=== PATIENT | male | born 1975 | race Caucasian/White ===

== ENCOUNTER 2022-02-15 09:08 | Inpatient (IN) | payer BC ==
[~2022-02-15] VITALS: Ht 182.9 cm; Wt 89.9 kg
[2022-02-15] VITALS (24 sets, daily range): BP systolic 89–166; BP diastolic 57–96
[2022-02-15 09:45] LABS: BASOPHILS # (AUTO) 0.1 X10'3 (0-0.2); BASOPHILS % (AUTO) 0.4 % (0-1); EOSINOPHILS % (AUTO) 0.4 % (0-6); HEMATOCRIT 52.9 % (42.0-52.0); HEMOGLOBIN 17.9 g/dl (14.0-17.9); LYMPHOCYTES # (AUTO) 0.5 X10'3 (1.1-4.8); LYMPHOCYTES % (AUTO) 3.7 % (21-51); MEAN CORPUSCULAR HEMOGLOBIN 34.3 PG (27.0-31.0); MEAN CORPUSCULAR HGB CONC 33.9 g/dL (33.0-36.5); MEAN CORPUSCULAR VOLUME 101.3 FL (78-98); MEAN PLATELET VOLUME 9.4 FL (7.4-10.4); MONOCYTES # (AUTO) 1.2 X10'3 (0-0.9); MONOCYTES % (AUTO) 9.2 % (2-12); NEUTROPHILS # (AUTO) 10.9 X10'3 (1.8-7.7); NEUTROPHILS % (AUTO) 86.3 % (42-75); PLATELET COUNT 101 X10'3 (140-440); RED BLOOD COUNT 5.22 X10'6 (4.70-6.10); RED CELL DISTRIBUTION WIDTH 13.4 % (11.5-14.5); WHITE BLOOD COUNT 12.6 X10'3 (4.5-11.0)
[2022-02-15 10:03] LABS: ALANINE AMINOTRANSFERASE 41 U/L (12-78); ALBUMIN/GLOBULIN RATIO 0.6 (1.1-1.5); ALKALINE PHOSPHATASE 148 IU/L (46-116); ANION GAP 14 (8-16); ASPARTATE AMINO TRANSFERASE 28 U/L (10-37); BILIRUBIN,TOTAL 3.1 MG/DL (0.1-1.0); BLOOD UREA NITROGEN 20 MG/DL (7-18); BUN/CREATININE RATIO 11.6 (5.4-32.0); CALCIUM 10.4 MG/DL (8.5-10.1); CHLORIDE 90 MMOL/L (99-107); CREATININE 1.72 MG/DL (0.60-1.10); SODIUM 124 MMOL/L (135-145); TOTAL PROTEIN 8.4 G/DL (6.4-8.2); eGFR 43 ML/MIN
[2022-02-15 10:05] LABS: POTASSIUM 4.7 MMOL/L (3.5-5.1)
[2022-02-15] MEDS ORDERED: ampicillin/sulbac 3gm/NS 100ml 100 ML IV STA (10:06)
[2022-02-15] MEDS ORDERED: normal saline 1000ML IV soln IVB ONE ×3 (10:10→13:35)
[2022-02-15 10:12] LABS: GLUCOSE 462 MG/DL (70-104)
[2022-02-15] MEDS ORDERED: vancomycin inj 1,000 MG in normal saline 250ml IV soln 250 ML IV ONE (10:25)
[2022-02-15 10:45] LABS: PLATELET ESTIMATE DECREASED; TOTAL CELLS COUNTED 100
[2022-02-15 10:46] LABS: LARGE PLATELETS FEW
[2022-02-15] MEDS ORDERED: insulin regular, human 10 units/0.1 ml syringe SQ ONE (11:10)
[2022-02-15] MEDS ORDERED: insulin regular, human 10 units/0.1 ml syringe IV ONE (11:10)
[2022-02-15] MEDS ORDERED: vancomycin/NS 1 GM ADD-VANTAGE 250 ML IV ONE (11:19)
[2022-02-15 11:23] LABS: CLARITY,URINE CLEAR (Clear); COLOR,URINE YELLOW (Yellow); GLUCOSE, URINE >=1000 mg/dl (Neg); KETONES,URINE 15 mg/dl (Neg); LEUKOCYTE ESTERASE ,URINE NEGATIVE (Neg); NITRITES, URINE NEGATIVE (Neg); OCCULT BLOOD,URINE TRACE-INTACT (Neg); PH,URINE 5.5 (4.8-8.0); PROTEIN,URINE TRACE mg/dl (Neg); UROBILINOGEN,URINE 0.2 E.U/dL (0.2-1.0)
[2022-02-15 11:40] LABS: UA COLLECTION TYPE URINAL
[2022-02-15 11:48] LABS: BACTERIA,URINE NONE SEEN /HPF (Neg); MUCUS STRANDS NONE SEEN /LPF (Neg); RBC,URINE 0-2 /HPF (0-2); SQUAMOUS EPITHELIAL CELL,UR FEW /LPF (FEW); WBC,URINE NONE SEEN /HPF (0-4)
[2022-02-15] MEDS ORDERED: clindamycin-Cleocin 900mg/D5W 50 ML IV ONE (12:00)
[2022-02-15] MEDS ORDERED: ondansetron/PF 4mg/2ml inj IV ONE (12:05)
[2022-02-15] MEDS ORDERED: morphine 4 MG/ML inj SYRINge IV ONE (12:05)
[2022-02-15] MEDS ORDERED: LIDOcaine 2% 10ml TOPICAL JELLY (Urojet) MM ONE (12:25)
[2022-02-15] MEDS ORDERED: NO HOME MEDS (13:07)
[2022-02-15] MEDS ORDERED: LIDOcaine 1% (10mg/ml) 2ml vial ONE (14:19)
[2022-02-15] MEDS ORDERED: midazolam 1 mg/ML 2ml injection ONE (14:20)
[2022-02-15] MEDS ORDERED: sevoflurane 250ml liquid IH ONE (14:33)
[2022-02-15] MEDS ORDERED: NORepinephrine 8 MG in NS 250 ML BAG (32 mcg/ml) IV ONE (14:33)
[2022-02-15] MEDS ORDERED: LIDOcaine 2% (20mg/ml) 5ml vial ONE (15:35)
[2022-02-15] MEDS ORDERED: 0.9 % SODIUM CHLORIDE 10 ML VIAL ONE (15:35)
[2022-02-15] MEDS ORDERED: fentaNYL /PF 50mcg/ml 5ml ampule ONE (15:35)
[2022-02-15] MEDS ORDERED: ePHEDrine 50MG/ML INJ. ONE (15:35)
[2022-02-15] MEDS ORDERED: propofol inj 20 ML IV ONE (15:35)
[2022-02-15] MEDS ORDERED: rocuronium 10mg/ml inj IV ONE ×2 (15:35→15:46)
[2022-02-15] MEDS ORDERED: fentaNYL/PF 50MCG/1 ML 2ML syringe IV PRN (15:40)
[2022-02-15] MEDS ORDERED: insulin regular, human U-100 3ml vial - multi-dose ONE (15:41)
[2022-02-15] MEDS ORDERED: magnesium hydroxide 30ml (MOM) UD suspension PO PRN (16:10)
[2022-02-15] MEDS ORDERED: acetaminophen 325mg tablet PO PRN ×2 (16:10)
[2022-02-15] MEDS ORDERED: ondansetron/PF 4mg/2ml inj IV PRN (16:10)
[2022-02-15] MEDS ORDERED: POTASSIUM BICARB 20meq eff tab 20 MEQ TABLET.EFF PO PRN ×2 (16:10)
[2022-02-15] MEDS ORDERED: LIDOcaine 2% 10ml TOPICAL JELLY (Urojet) TP ONE (16:10)
[2022-02-15 16:15] LABS: ABG BASE EXCESS -9.2 mmol/L (-2.0-2.0); ABG HCO3 15.4 mmol/L (22.0-26.0); ABG OXYGEN SATURATION 97.3 % (94-97); FCOHb 2.4 % (0.0-3.9); FMetHb 0.3 % (0.0-1.5); FO2Hb 94.7 % (94-97); PATIENT TEMPERATURE 39.4; TOTAL HEMOGLOBIN 16.2 G/dl (14.0-17.9)
[2022-02-15] MEDS ORDERED: sodium bicarbonate (8.4%) inj. 1 MEQ/ML ML ONE (16:19)
--- NOTE | 2022-02-15 16:45 | NUR ---
Received from OR via [facility] , accompanied by Anesthesiologist JAS and report given by Anesthesiolgist. PATIENT WITH NGT TO LIS, BLOODY DRAINAGE PRESENT. TRIPLE LUMEN TO RIGHT NECK, 20G PIV IN RIGHT AC, ART LINE IN RIGHT UE. 18G PIV IN LEFT FA, GALVEZ CATHETERIN PLACE (CONCENTRATED URINE)IN UNDERS PACKED WITH SMALL AMOUNT OF DRAINAGE CONTAINED WITHIN DRESSINGS. INTUBATED FROM THE OR, RT APPLYING VENTILATOR. ORDERS RECIEVED AND ENTERED VIA MD ELIZALDE. Addendum: 02/15/22 at 1741 by Deon Tyler RN, RN Amended: Links added.
[2022-02-15] MEDS ORDERED: LORazepam 2 mg/ml vial ONE ×2 (16:46→16:48)
[2022-02-15] MEDS ORDERED: normal saline 1000ml 1,000 ML IV ONE (17:10)
[2022-02-15] MEDS ORDERED: normal saline 1000ml 1,000 ML IV SCH (17:10)
[2022-02-15] MEDS: propofol 1000mg/100ml bottle 100 ML IV SCH (17:26)
[2022-02-15] MEDS: FENTANYL-0.9 % NACL/PF 100 ML IV PRN (17:27)
[2022-02-15 17:29] LABS: ABG BASE EXCESS -8.3 mmol/L (-2.0-2.0); ABG HCO3 16.9 mmol/L (22.0-26.0); ABG OXYGEN SATURATION 99.2 % (94-97); ABG PCO2 (T) 34.2 mmHg (35.0-48.0); ABG PO2 (T) 167.8 mmHg (75.0-100.0); FCOHb 1.7 % (0.0-3.9); FMetHb 0.4 % (0.0-1.5); FO2Hb 97.1 % (94-97); PEEP 5 cm H2O; RESPIRATORY RATE 16 b/min; TIDAL VOLUME 650 mL; TOTAL HEMOGLOBIN 15.4 G/dl (14.0-17.9)
[2022-02-15] MEDS ORDERED: pantoprazole 40mg IV 80 MG in normal saline 100ml IV soln 100 ML IV ONE (17:45)
--- NOTE | 2022-02-15 17:55 | NUR ---
REPORT GIVEN AND ALL QUESTIONS ANSWERED. PATIENT TRANSFERRED TO MINGLE OPERATOR. NO BELONGINGS PRESENT IN ROOM. RN PRESENT ALL CRITERIA FOR TRANSFER CARE TO MINGLE OPERATOR HAS BEEN ACHIEVED. VSS. PAIN AT A TOLERABLE LEVEL. BED LOW, 4 RAILS UP PATIENT IS VENTILATED. RN HAS BEEN PRESENT TO ACCEPT CARE OF PATIENT AND PROVIDE CARE TO PATIENT. Addendum: 02/15/22 at 1800 by Deon Anderson - RANJAN RN Amended: Links added.
[2022-02-15] MEDS: NORepinephrine 8mg/ 250ml NS 250 ML IV SCH (18:30)
--- NOTE | 2022-02-15 18:30 | NUR ---
Patient in room CICU 2016. I have received report from day shift RN and had the opportunity to ask questions and assume patient care.
[2022-02-15 18:59] LABS: BASOPHILS % (AUTO) 0.3 % (0-1); EOSINOPHILS % (AUTO) 0 % (0-6); HEMATOCRIT 42.3 % (42.0-52.0); HEMOGLOBIN 14.3 g/dl (14.0-17.9); LYMPHOCYTES # (AUTO) 0.7 X10'3 (1.1-4.8); LYMPHOCYTES % (AUTO) 4.9 % (21-51); MEAN CORPUSCULAR HEMOGLOBIN 34.3 PG (27.0-31.0); MEAN CORPUSCULAR HGB CONC 33.7 g/dL (33.0-36.5); MEAN CORPUSCULAR VOLUME 101.7 FL (78-98); MEAN PLATELET VOLUME 9.4 FL (7.4-10.4); MONOCYTES # (AUTO) 2.1 X10'3 (0-0.9); NEUTROPHILS # (AUTO) 10.9 X10'3 (1.8-7.7); NEUTROPHILS % (AUTO) 79.8 % (42-75); PLATELET COUNT 98 X10'3 (140-440); RED BLOOD COUNT 4.16 X10'6 (4.70-6.10); RED CELL DISTRIBUTION WIDTH 13.7 % (11.5-14.5); WHITE BLOOD COUNT 13.7 X10'3 (4.5-11.0)
[2022-02-15] MEDS: normal saline 1000ml 1,000 ML IV SCH ×2 (19:00→19:29)
[2022-02-15 19:11] LABS: ALANINE AMINOTRANSFERASE 24 U/L (12-78); ALBUMIN 1.8 G/DL (3.4-5.0); ALBUMIN/GLOBULIN RATIO 0.5 (1.1-1.5); ALKALINE PHOSPHATASE 83 IU/L (46-116); ANION GAP 10 (8-16); ASPARTATE AMINO TRANSFERASE 18 U/L (10-37); BILIRUBIN,TOTAL 2.1 MG/DL (0.1-1.0); BLOOD UREA NITROGEN 18 MG/DL (7-18); BUN/CREATININE RATIO 14.1 (5.4-32.0); CALCIUM 7.4 MG/DL (8.5-10.1); CHLORIDE 105 MMOL/L (99-107); CREATININE 1.28 MG/DL (0.60-1.10); GLUCOSE 271 MG/DL (70-104); POTASSIUM 4.1 MMOL/L (3.5-5.1); SODIUM 135 MMOL/L (135-145); TOTAL CARBON DIOXIDE 20.5 MMOL/L (24-32); TOTAL PROTEIN 5.6 G/DL (6.4-8.2); eGFR 60 ML/MIN
--- NOTE | 2022-02-15 19:30 | NUR ---
Patient's at bedside. Questions answered, update given. All patient belongings including white metal colored ring sent home with patient's .
[2022-02-15 19:42] LABS: TOTAL CELLS COUNTED 100
[2022-02-15 19:47] LABS: PLATELET ESTIMATE DECREASED
[2022-02-15 19:48] LABS: BURR CELLS FEW; TEAR DROP CELLS FEW
[2022-02-15 20:15] LABS: D-DIMER 1.49 MG/L FEU (0-0.50)
[2022-02-15] MEDS ORDERED: glucagon, human recombinant 1mg kit SUBCUT PRN (20:15)
[2022-02-15] MEDS ORDERED: MESSAGE TO PHARMACY PO ONE (20:15)
[2022-02-15] MEDS ORDERED: DEXTROSE 15 GM of carb/4 tabs (each vial/BOTTLE has 4 tablets) PO PRN ×2 (20:15)
[2022-02-15] MEDS ORDERED: dextrose 50%-water 50ml dispensing syringe IV PRN ×2 (20:15)
[2022-02-15 20:30] LABS: APTT 29 SECONDS (22-32)
[2022-02-15 20:52] LABS: PLATELET COUNT 98 X10'3 (140-440)
[2022-02-15 20:54] LABS: MAGNESIUM 1.8 MG/DL (1.5-2.4); PHOSPHORUS 2.9 MG/DL (2.3-4.5)
[2022-02-15] MEDS: insulin glargine (Lantus) pen - multi-dose SQ SCH (21:00)
[2022-02-15 21:05] LABS: HEMOGLOBIN A1C 10.1 % (4.5-6.2)
[2022-02-15] MEDS: ringers solution, lacted 1,000 ML IV SCH (21:46)
[2022-02-15] MEDS: vasopressin inj. 40 UNIT in normal saline 50ml IV soln 38 ML IV SCH (21:47)
[2022-02-15] MEDS: insulin Lispro (HumaLOG) vial - multi-dose SQ SCH (22:42)
[2022-02-15 23:21] LABS: ALANINE AMINOTRANSFERASE 27 U/L (12-78); ALBUMIN 2.1 G/DL (3.4-5.0); ALBUMIN/GLOBULIN RATIO 0.5 (1.1-1.5); ALKALINE PHOSPHATASE 96 IU/L (46-116); ANION GAP 9 (8-16); ASPARTATE AMINO TRANSFERASE 21 U/L (10-37); BILIRUBIN,TOTAL 1.7 MG/DL (0.1-1.0); BLOOD UREA NITROGEN 18 MG/DL (7-18); CHLORIDE 104 MMOL/L (99-107); GLUCOSE 312 MG/DL (70-104); POTASSIUM 5.4 MMOL/L (3.5-5.1); SODIUM 134 MMOL/L (135-145); TOTAL CARBON DIOXIDE 20.7 MMOL/L (24-32); TOTAL PROTEIN 6.3 G/DL (6.4-8.2); eGFR 65 ML/MIN
[2022-02-16] VITALS (34 sets, daily range): BP systolic 94–128; BP diastolic 59–82
[2022-02-16] MEDS: VANCOmycin 1250MG/NS 250ml Bag 250 ML IV SCH ×2 (00:34→12:00)
[2022-02-16] MEDS: FENTANYL-0.9 % NACL/PF 100 ML IV PRN ×3 (00:36→13:07)
[2022-02-16] MEDS: clindamycin-Cleocin 900mg/D5W 50 ML IV SCH ×3 (00:47→16:52)
[2022-02-16] MEDS: ringers solution, lacted 1,000 ML IV SCH ×3 (01:20→13:07)
[2022-02-16] MEDS: piperacillin/tazo 4.5gm/100ml 100 ML IV SCH ×3 (02:19→16:52)
[2022-02-16 02:27] LABS: BASOPHILS % (AUTO) 0.1 % (0-1); EOSINOPHILS % (AUTO) 0 % (0-6); HEMATOCRIT 46.3 % (42.0-52.0); HEMOGLOBIN 15.1 g/dl (14.0-17.9); LYMPHOCYTES % (AUTO) 6.1 % (21-51); MEAN CORPUSCULAR HEMOGLOBIN 33.5 PG (27.0-31.0); MEAN CORPUSCULAR HGB CONC 32.6 g/dL (33.0-36.5); MEAN CORPUSCULAR VOLUME 102.8 FL (78-98); MEAN PLATELET VOLUME 9.4 FL (7.4-10.4); MONOCYTES # (AUTO) 2.1 X10'3 (0-0.9); MONOCYTES % (AUTO) 12.5 % (2-12); NEUTROPHILS # (AUTO) 13.7 X10'3 (1.8-7.7); NEUTROPHILS % (AUTO) 81.3 % (42-75); PLATELET COUNT 133 X10'3 (140-440); RED CELL DISTRIBUTION WIDTH 13.9 % (11.5-14.5); WHITE BLOOD COUNT 16.9 X10'3 (4.5-11.0)
[2022-02-16] MEDS: insulin Lispro (HumaLOG) vial - multi-dose SQ SCH ×2 (02:28→08:36)
[2022-02-16 02:56] LABS: ALANINE AMINOTRANSFERASE 27 U/L (12-78); ALBUMIN/GLOBULIN RATIO 0.5 (1.1-1.5); ALKALINE PHOSPHATASE 98 IU/L (46-116); ANION GAP 9 (8-16); ASPARTATE AMINO TRANSFERASE 21 U/L (10-37); BILIRUBIN,TOTAL 1.6 MG/DL (0.1-1.0); BLOOD UREA NITROGEN 18 MG/DL (7-18); BUN/CREATININE RATIO 15.9 (5.4-32.0); CHLORIDE 104 MMOL/L (99-107); CREATININE 1.13 MG/DL (0.60-1.10); GLUCOSE 307 MG/DL (70-104); MAGNESIUM 2.3 MG/DL (1.5-2.4); PHOSPHORUS 2.7 MG/DL (2.3-4.5); SODIUM 135 MMOL/L (135-145); TOTAL CARBON DIOXIDE 22.1 MMOL/L (24-32); TOTAL PROTEIN 6.3 G/DL (6.4-8.2); TRIGLYCERIDES 334 MG/DL (20-135); eGFR 70 ML/MIN
[2022-02-16 03:39] LABS: ABG BASE EXCESS -5.8 mmol/L (-2.0-2.0); ABG HCO3 19.9 mmol/L (22.0-26.0); ABG OXYGEN SATURATION 99.2 % (94-97); ABG PCO2 (T) 39.1 mmHg (35.0-48.0); ABG PO2 (T) 161.6 mmHg (75.0-100.0); ALLEN'S TEST POSITIVE; FCOHb 0.6 % (0.0-3.9); FMetHb 0.3 % (0.0-1.5); FO2Hb 98.3 % (94-97); PATIENT TEMPERATURE 36.7; PEEP 5 cm H2O; RESPIRATORY RATE 16 b/min; TIDAL VOLUME 600 mL
[2022-02-16] MEDS: NORepinephrine 8mg/ 250ml NS 250 ML IV SCH ×2 (03:41→13:20)
[2022-02-16] MEDS: propofol 1000mg/100ml bottle 100 ML IV SCH ×5 (03:41→22:38)
[2022-02-16 04:43] LABS: OXYGEN SATURATION (MIXED VEN) 85.7 % (60-80)
[2022-02-16] MEDS ORDERED: PHENYLephrine 10mg/ml inj. 50 MG in normal saline 250ml IV soln 245 ML IV PRN (05:05)
[2022-02-16] MEDS: normal saline 1000ml 1,000 ML IV SCH ×3 (05:30→18:50)
--- NOTE | 2022-02-16 06:30 | NUR ---
Problems reprioritized. Patient report given, questions answered & plan of care reviewed with Tierney WOODRUFF.
[2022-02-16] MEDS: K and/or MAG REPLACEMENT MC SCH (08:00)
[2022-02-16] MEDS ORDERED: albumin (human) 25% 100ml IV 400 ML IV ONE (10:25)
[2022-02-16] MEDS: thiamine 100mg/ml 2ml inj. IV SCH ×2 (10:26→19:36)
[2022-02-16] MEDS: MULTIVIT-MIN/FERROUS GLUCONATE 9 MG/15 ML LIQUID NG SCH (10:27)
[2022-02-16] MEDS: folic acid 1mg/0.2ml inj IV SCH (10:27)
[2022-02-16] MEDS: Insulin Reg/NS 100units/100mL 100 ML IV SCH (10:40)
[2022-02-16] MEDS: albumin (Human) 5% 250ml 250 ML IV SCH ×6 (11:30→23:57)
--- NOTE | 2022-02-16 12:05 | NUR ---
Cardiac consult: Likely intended to be a carb consult given no known cardiac PMH and pt found to have A1c 10.1%, undiagnosed DM (MD aware). Pt intubated at this time though would benefit from DM education once stable following extubation and official DM dx by physician. Pt with EtOH hx, currently receiving routine Thiamine, Folic acid, and MVM with iron. Pt admit for Tone's gangrene and sepsis, currently POD #1 s/p debridement of perineum and scrotum. Per MD pt to return to OR today for further debridement and possibly again either 02/17 or 02/18. Propofol visualized at bedside to be running at 20.52 mL/hr providing 572 kcal/day. Pt with an NGT in place, see TF recs below for if expected prolonged intubation and to receive nutrition support. Per RN pt currently with no bowel sounds. Pt possibly to get a colostomy placed on 02/20 to assist with wound healing per MD. Will continue to follow closely. Recommendations: 1) IF TF and Propofol at 20.52 mL/hr (572 kcal/day), continuous Vital HP via NGT with 65 mL/hr goal rate; Vital HP with 90 mL/hr goal if Propofol discontinued 2) Monitor serum Na and appropriateness for water flushes; pt would benefit from Norman BID to assist with wound healing 3) IF TF, prealbumin q Saturday/; daily scaled weights 4) Continue routine Thiamine, Folic acid, and MVM with iron d/t EtOH hx 5) Advance to low fiber CHO controlled diet as medically indicated following extubation 6) DM education once appropriate following extubation and official DM dx by physician; A1c 10.1% with no PMH DM (MD aware) 7) Bowel care per physician Addendum: 02/16/22 at [address] Amended: Links added.
[2022-02-16] MEDS ORDERED: sevoflurane 250ml liquid IH ONE (13:12)
[2022-02-16] MEDS ORDERED: NORepinephrine 8 MG in NS 250 ML BAG (32 mcg/ml) IV ONE (13:12)
[2022-02-16] MEDS ORDERED: vasoPRESSIN 20 units/ml inj. ONE (13:12)
[2022-02-16] MEDS ORDERED: propofol 10mg/ml 20ml vial IV ONE (13:12)
[2022-02-16] MEDS ORDERED: albumin (Human) 5% 250ml BOTTLE IV ONE (13:12)
[2022-02-16] MEDS ORDERED: rocuronium 10mg/ml inj IV ONE (13:12)
[2022-02-16] MEDS ORDERED: naloxone 0.4 mg/ml inj IV PRN (15:25)
--- NOTE | 2022-02-16 15:36 | NUR ---
WOC note: Wound care consult received for this patient with orders to contact Dr. Barron for wound orders. Phoned Dr. Barron who reports the patient does not need WOC consult at this time. The dressing should be fine to stay in place over the weekend and primary nursing can address the wound care Saturday and he will write the order for wet to moist dressing changes. I reported this off CICU primary RN. WOC will not follow the patient at this time.
[2022-02-16] MEDS: hydrocortisone sod succ/PF 100mg/2ml inj. IV SCH (16:52)
[2022-02-16] MEDS: fentaNYL/NS/PF 2,500 mcg/250mL 250 ML IV PRN (18:39)
[2022-02-16] MEDS: mineral oil/petrolatum ophthal oint EACHEYE SCH (19:36)
[2022-02-16] MEDS: insulin glargine (Lantus) pen - multi-dose SQ SCH (21:00)
[2022-02-17] VITALS (36 sets, daily range): BP systolic 101–124; BP diastolic 58–75
[2022-02-17] MEDS: hydrocortisone sod succ/PF 100mg/2ml inj. IV SCH ×4 (00:44→23:45)
[2022-02-17] MEDS: clindamycin-Cleocin 900mg/D5W 50 ML IV SCH ×4 (00:44→23:46)
[2022-02-17] MEDS: VANCOmycin 1250MG/NS 250ml Bag 250 ML IV SCH (00:48)
[2022-02-17] MEDS: piperacillin/tazo 4.5gm/100ml 100 ML IV SCH ×4 (00:48→23:46)
[2022-02-17] MEDS: ringers solution, lacted 1,000 ML IV SCH ×2 (01:23→08:41)
[2022-02-17] MEDS: normal saline 1000ml 1,000 ML IV SCH ×4 (01:30→21:30)
[2022-02-17] MEDS: NORepinephrine 8mg/ 250ml NS 250 ML IV SCH ×3 (02:06→19:13)
[2022-02-17 02:20] LABS: BASOPHILS % (AUTO) 0.3 % (0-1); EOSINOPHILS % (AUTO) 0 % (0-6); HEMATOCRIT 38.4 % (42.0-52.0); HEMOGLOBIN 12.5 g/dl (14.0-17.9); LYMPHOCYTES # (AUTO) 0.5 X10'3 (1.1-4.8); LYMPHOCYTES % (AUTO) 7.8 % (21-51); MEAN CORPUSCULAR HEMOGLOBIN 33.5 PG (27.0-31.0); MEAN CORPUSCULAR HGB CONC 32.5 g/dL (33.0-36.5); MEAN CORPUSCULAR VOLUME 103.2 FL (78-98); MONOCYTES # (AUTO) 0.8 X10'3 (0-0.9); MONOCYTES % (AUTO) 11.6 % (2-12); NEUTROPHILS # (AUTO) 5.5 X10'3 (1.8-7.7); NEUTROPHILS % (AUTO) 80.3 % (42-75); PLATELET COUNT 78 X10'3 (140-440); RED BLOOD COUNT 3.72 X10'6 (4.70-6.10); RED CELL DISTRIBUTION WIDTH 14.2 % (11.5-14.5); WHITE BLOOD COUNT 6.9 X10'3 (4.5-11.0)
[2022-02-17] MEDS: Insulin Reg/NS 100units/100mL 100 ML IV SCH ×4 (02:23→17:35)
[2022-02-17] MEDS: mineral oil/petrolatum ophthal oint EACHEYE SCH ×4 (02:23→19:14)
[2022-02-17] MEDS: albumin (Human) 5% 250ml 250 ML IV SCH ×8 (02:27→22:37)
[2022-02-17 02:38] LABS: MAGNESIUM 2.6 MG/DL (1.5-2.4)
[2022-02-17] MEDS: propofol 1000mg/100ml bottle 100 ML IV SCH ×9 (02:48→23:46)
[2022-02-17] MEDS: vasopressin inj. 40 UNIT in normal saline 50ml IV soln 38 ML IV SCH (02:48)
[2022-02-17 03:01] LABS: ABG BASE EXCESS -1.6 mmol/L (-2.0-2.0); ABG HCO3 23.5 mmol/L (22.0-26.0); ABG OXYGEN SATURATION 97.5 % (94-97); ABG PCO2 (T) 41.7 mmHg (35.0-48.0); FCOHb 0.6 % (0.0-3.9); FMetHb 0.2 % (0.0-1.5); FO2Hb 96.7 % (94-97); PATIENT TEMPERATURE 37.2; PEEP 8 cm H2O; RESPIRATORY RATE 16 b/min; TIDAL VOLUME 550 mL; TOTAL HEMOGLOBIN 13.5 G/dl (14.0-17.9)
[2022-02-17 03:10] LABS: LARGE PLATELETS FEW; PLATELET ESTIMATE DECREASED
[2022-02-17] MEDS: fentaNYL/NS/PF 2,500 mcg/250mL 250 ML IV PRN ×3 (05:35→20:58)
--- NOTE | 2022-02-17 06:25 | NUR ---
Problems reprioritized. Patient report given, questions answered & plan of care reviewed with Tra RN.
[2022-02-17] MEDS: thiamine 100mg/ml 2ml inj. IV SCH ×2 (07:19→19:13)
[2022-02-17] MEDS: folic acid 1mg/0.2ml inj IV SCH (07:22)
[2022-02-17] MEDS: MULTIVIT-MIN/FERROUS GLUCONATE 9 MG/15 ML LIQUID NG SCH (07:22)
[2022-02-17] MEDS: K and/or MAG REPLACEMENT MC SCH (07:22)
[2022-02-17 09:57] LABS: ALANINE AMINOTRANSFERASE 20 U/L (12-78); ALBUMIN 3.3 G/DL (3.4-5.0); ALBUMIN/GLOBULIN RATIO 1.1 (1.1-1.5); ALKALINE PHOSPHATASE 61 IU/L (46-116); ANION GAP 10 (8-16); ASPARTATE AMINO TRANSFERASE 18 U/L (10-37); BLOOD UREA NITROGEN 27 MG/DL (7-18); CALCIUM 8.6 MG/DL (8.5-10.1); CHLORIDE 109 MMOL/L (99-107); GLUCOSE 187 MG/DL (70-104); PHOSPHORUS 2.3 MG/DL (2.3-4.5); SODIUM 142 MMOL/L (135-145); TOTAL CARBON DIOXIDE 23.5 MMOL/L (24-32); TOTAL PROTEIN 6.4 G/DL (6.4-8.2); eGFR 90 ML/MIN
[2022-02-17 10:06] LABS: TOTAL CELLS COUNTED 100
[2022-02-17] MEDS ORDERED: furosemide 40mg/4ml inj IV ONE (10:45)
[2022-02-17] MEDS ORDERED: VANCOMYCIN LEVEL IV ONE (11:30)
--- NOTE | 2022-02-17 12:01 | NUR ---
TF consult: Pt remains intubated, not to go back to OR until Saturday per RN. MD agrees to start TF since no plans for pt to go back to OR today. Propofol visualized at bedside to be running at 50 mcg/kg/min (34.23 mL/hr) providing 904 kcal/day, TF recs have been adjusted accordingly. Patient's estimated energy needs will be 100% met with combined kcal from TF and Propofol and 98% estimated protein needs. Will continue to follow closely. Recommendations: 1) Given Propofol at 34.23 mL/hr (904 kcal/day), continuous Vital HP via NGT with 65 mL/hr goal rate to prove 1560 mL total volume/day, 1560 kcal, 126 g protein, and 1204 mL water 2) IF Propofol discontinued, continuous Vital AF with 85 mL/hr goal 3) Monitor Propofol rate and need to adjust TF recs 4) Monitor serum Na and appropriateness for water flushes; pt would benefit from Norman BID to assist with wound healing 5) Prealbumin q Saturday/ 6) Daily scaled weights 7) Continue routine Thiamine, Folic acid, and MVM with iron d/t EtOH hx 8) Advance to low fiber CHO controlled diet as medically indicated following extubation 9) DM education once appropriate following extubation and official DM dx by physician; A1c 10.1% with no PMH DM (MD aware) 10) Bowel care per physician Addendum: 02/17/22 at [address] Amended: Links added.
[2022-02-17] MEDS ORDERED: VANCOMYCIN 1,500MG in normal saline IV soln 300 ML IV SCH (14:00)
[2022-02-17] MEDS ORDERED: magnesium 4gm in 100ml NS 100 ML IV PRN (15:00)
[2022-02-17] MEDS ORDERED: sodium phosphate inj. 15 MMOL in dextrose 5%-water 250 ML IV PRN (15:00)
[2022-02-17] MEDS ORDERED: magnesium 2GM in 50ml NS 50 ML IV PRN (15:00)
[2022-02-17] MEDS ORDERED: sodium phosphate inj. 30 MMOL in dextrose 5%-water 250 ML IV PRN (15:00)
[2022-02-17] MEDS ORDERED: Neutra Phos packet PO PRN (15:00)
[2022-02-17] MEDS ORDERED: sodium phosphate inj. 15 MMOL in dextrose 5%-water 250 ML IV ONE (15:30)
[2022-02-17] MEDS ORDERED: DEXTROSE 15 GM of carb/4 tabs (each vial/BOTTLE has 4 tablets) NG PRN ×2 (16:26)
[2022-02-17] MEDS ORDERED: magnesium hydroxide 30ml (MOM) UD suspension NG PRN (16:27)
[2022-02-17] MEDS ORDERED: POTASSIUM BICARB 20meq eff tab 20 MEQ TABLET.EFF NG PRN ×2 (16:27→16:33)
[2022-02-17] MEDS ORDERED: Neutra Phos packet NG PRN (16:27)
[2022-02-17] MEDS: furosemide 20 MG/2 ML vial IV SCH ×2 (17:24→19:13)
--- NOTE | 2022-02-17 18:15 | NUR ---
Problems reprioritized. Patient report given, questions answered & plan of care reviewed with Makenzie.
--- NOTE | 2022-02-17 18:30 | NUR ---
Patient in room CICU 2016. I have received report from Reg RN and had the opportunity to ask questions and assume patient care.
[2022-02-17] MEDS: insulin glargine (Lantus) pen - multi-dose SQ SCH (21:00)
[2022-02-18] VITALS (33 sets, daily range): BP systolic 102–161; BP diastolic 55–72
[2022-02-18] MEDS: vasopressin inj. 40 UNIT in normal saline 50ml IV soln 38 ML IV SCH (01:06)
[2022-02-18] MEDS: mineral oil/petrolatum ophthal oint EACHEYE SCH ×4 (01:43→20:00)
[2022-02-18] MEDS: furosemide 20 MG/2 ML vial IV SCH ×4 (01:43→19:55)
[2022-02-18] MEDS: albumin (Human) 5% 250ml 250 ML IV SCH ×7 (01:43→22:11)
[2022-02-18] MEDS: propofol 1000mg/100ml bottle 100 ML IV SCH ×8 (02:33→23:02)
[2022-02-18 02:46] LABS: BASOPHILS % (AUTO) 0.1 % (0-1); EOSINOPHILS % (AUTO) 0 % (0-6); HEMATOCRIT 37.5 % (42.0-52.0); HEMOGLOBIN 12.4 g/dl (14.0-17.9); LYMPHOCYTES # (AUTO) 0.8 X10'3 (1.1-4.8); LYMPHOCYTES % (AUTO) 7.9 % (21-51); MEAN CORPUSCULAR HEMOGLOBIN 33.8 PG (27.0-31.0); MEAN CORPUSCULAR HGB CONC 33.2 g/dL (33.0-36.5); MEAN CORPUSCULAR VOLUME 101.9 FL (78-98); MEAN PLATELET VOLUME 9.3 FL (7.4-10.4); MONOCYTES % (AUTO) 10.4 % (2-12); NEUTROPHILS # (AUTO) 7.9 X10'3 (1.8-7.7); NEUTROPHILS % (AUTO) 81.6 % (42-75); PLATELET COUNT 104 X10'3 (140-440); RED BLOOD COUNT 3.67 X10'6 (4.70-6.10); RED CELL DISTRIBUTION WIDTH 14.7 % (11.5-14.5); WHITE BLOOD COUNT 9.7 X10'3 (4.5-11.0)
[2022-02-18 03:13] LABS: ALANINE AMINOTRANSFERASE 17 U/L (12-78); ALBUMIN 3.5 G/DL (3.4-5.0); ALBUMIN/GLOBULIN RATIO 1.3 (1.1-1.5); ALKALINE PHOSPHATASE 53 IU/L (46-116); ANION GAP 9 (8-16); ASPARTATE AMINO TRANSFERASE 21 U/L (10-37); BILIRUBIN,TOTAL 0.9 MG/DL (0.1-1.0); BLOOD UREA NITROGEN 37 MG/DL (7-18); BUN/CREATININE RATIO 35.6 (5.4-32.0); CALCIUM 8.4 MG/DL (8.5-10.1); CHLORIDE 109 MMOL/L (99-107); CREATININE 1.04 MG/DL (0.60-1.10); GLUCOSE 118 MG/DL (70-104); MAGNESIUM 2.4 MG/DL (1.5-2.4); PHOSPHORUS 3.3 MG/DL (2.3-4.5); POTASSIUM 3.2 MMOL/L (3.5-5.1); SODIUM 144 MMOL/L (135-145); TOTAL CARBON DIOXIDE 25.6 MMOL/L (24-32); TOTAL PROTEIN 6.3 G/DL (6.4-8.2); eGFR 77 ML/MIN
[2022-02-18] MEDS: VANCOMYCIN 1,500MG in normal saline IV soln 300 ML IV SCH ×2 (03:54→15:02)
[2022-02-18] MEDS: fentaNYL/NS/PF 2,500 mcg/250mL 250 ML IV PRN ×3 (03:54→19:01)
[2022-02-18] MEDS: normal saline 1000ml 1,000 ML IV SCH (04:10)
[2022-02-18 04:34] LABS: ABG BASE EXCESS -3.2 mmol/L (-2.0-2.0); ABG HCO3 21.1 mmol/L (22.0-26.0); ABG OXYGEN SATURATION 95.5 % (94-97); ABG PCO2 (T) 36.1 mmHg (35.0-48.0); ABG PO2 (T) 79.4 mmHg (75.0-100.0); FCOHb 0.3 % (0.0-3.9); FMetHb 0.3 % (0.0-1.5); FO2Hb 94.9 % (94-97); PATIENT TEMPERATURE 37.1; PEEP 8 cm H2O; RESPIRATORY RATE 16 b/min; TIDAL VOLUME 16 mL; TOTAL HEMOGLOBIN 13.2 G/dl (14.0-17.9)
[2022-02-18] MEDS: ringers solution, lacted 1,000 ML IV SCH (04:51)
[2022-02-18] MEDS: Insulin Reg/NS 100units/100mL 100 ML IV SCH (05:06)
--- NOTE | 2022-02-18 06:21 | NUR ---
Problems reprioritized. Patient report given, questions answered & plan of care reviewed with Piero WOODRUFF.
[2022-02-18] MEDS: MULTIVIT-MIN/FERROUS GLUCONATE 9 MG/15 ML LIQUID NG SCH (07:59)
[2022-02-18] MEDS: clindamycin-Cleocin 900mg/D5W 50 ML IV SCH ×3 (07:59→23:41)
[2022-02-18] MEDS: hydrocortisone sod succ/PF 100mg/2ml inj. IV SCH ×3 (08:00→23:41)
[2022-02-18] MEDS: piperacillin/tazo 4.5gm/100ml 100 ML IV SCH ×3 (08:05→23:40)
[2022-02-18] MEDS: thiamine 100mg/ml 2ml inj. IV SCH ×2 (08:05→19:55)
[2022-02-18] MEDS: folic acid 1mg/0.2ml inj IV SCH (08:08)
[2022-02-18] MEDS: K and/or MAG REPLACEMENT MC SCH (08:38)
[2022-02-18] MEDS: potassium Cl 20mEq/100mL bag 100 ML IV PRN ×2 (08:43→09:44)
[2022-02-18] MEDS: DOBUTamine-DoBUTrex 500mg/D5W 250 ML IV SCH (10:34)
[2022-02-18] MEDS: insulin glargine (Lantus) pen - multi-dose SQ SCH ×2 (10:40→20:33)
[2022-02-18] MEDS: pantoprazole 40MG/NS 100ML BAG 100 ML IV SCH ×2 (11:12→19:55)
[2022-02-18] MEDS: NORepinephrine 8mg/ 250ml NS 250 ML IV SCH (13:12)
[2022-02-18] MEDS ORDERED: glucagon, human recombinant 1mg kit SUBCUT PRN (14:10)
[2022-02-18] MEDS ORDERED: dextrose 50%-water 50ml dispensing syringe IV PRN ×2 (14:10)
[2022-02-18] MEDS ORDERED: DEXTROSE 15 GM of carb/4 tabs (each vial/BOTTLE has 4 tablets) PO PRN ×2 (14:10)
[2022-02-18] MEDS ORDERED: MESSAGE TO PHARMACY PO ONE (14:10)
[2022-02-18] MEDS: insulin regular, human U-100 3ml vial - multi-dose SQ SCH ×2 (14:12→20:32)
--- NOTE | 2022-02-18 21:00 | NUR ---
incontinent of mod liquid, brown stool, collecting in open scrotal wound. Packing removed. wound irrigated aggressively with NS. Wet-to-dry dressing with kurlex, 4x4 and abd placed in open wound. linen change completed. abdiel procedure well.
[2022-02-19] VITALS (31 sets, daily range): BP systolic 124–174; BP diastolic 51–76
[2022-02-19] MEDS: NORepinephrine 8mg/ 250ml NS 250 ML IV SCH (00:54)
[2022-02-19] MEDS: albumin (Human) 5% 250ml 250 ML IV SCH ×7 (01:22→22:36)
[2022-02-19] MEDS ORDERED: VANCOMYCIN LEVEL IV ONE (01:30)
[2022-02-19] MEDS: fentaNYL/NS/PF 2,500 mcg/250mL 250 ML IV PRN ×3 (01:42→17:24)
[2022-02-19] MEDS: furosemide 20 MG/2 ML vial IV SCH ×4 (01:42→19:19)
[2022-02-19] MEDS: insulin regular, human U-100 3ml vial - multi-dose SQ SCH ×6 (01:53→20:37)
[2022-02-19] MEDS: propofol 1000mg/100ml bottle 100 ML IV SCH ×10 (01:56→23:06)
[2022-02-19] MEDS: mineral oil/petrolatum ophthal oint EACHEYE SCH ×4 (02:29→19:20)
[2022-02-19 02:32] LABS: BASOPHILS % (AUTO) 0.1 % (0-1); EOSINOPHILS % (AUTO) 0 % (0-6); HEMATOCRIT 35.4 % (42.0-52.0); HEMOGLOBIN 11.7 g/dl (14.0-17.9); LYMPHOCYTES # (AUTO) 0.6 X10'3 (1.1-4.8); LYMPHOCYTES % (AUTO) 9.6 % (21-51); MEAN CORPUSCULAR HEMOGLOBIN 33.8 PG (27.0-31.0); MEAN CORPUSCULAR VOLUME 102.4 FL (78-98); MEAN PLATELET VOLUME 8.8 FL (7.4-10.4); MONOCYTES # (AUTO) 0.6 X10'3 (0-0.9); MONOCYTES % (AUTO) 10.1 % (2-12); NEUTROPHILS # (AUTO) 5.1 X10'3 (1.8-7.7); NEUTROPHILS % (AUTO) 80.2 % (42-75); PLATELET COUNT 102 X10'3 (140-440); RED BLOOD COUNT 3.46 X10'6 (4.70-6.10); RED CELL DISTRIBUTION WIDTH 14.8 % (11.5-14.5); WHITE BLOOD COUNT 6.3 X10'3 (4.5-11.0)
[2022-02-19 02:38] LABS: ALANINE AMINOTRANSFERASE 19 U/L (12-78); ALBUMIN 3.7 G/DL (3.4-5.0); ALBUMIN/GLOBULIN RATIO 1.4 (1.1-1.5); ALKALINE PHOSPHATASE 53 IU/L (46-116); ANION GAP 9 (8-16); ASPARTATE AMINO TRANSFERASE 16 U/L (10-37); BLOOD UREA NITROGEN 35 MG/DL (7-18); BUN/CREATININE RATIO 39.8 (5.4-32.0); CALCIUM 8.6 MG/DL (8.5-10.1); CHLORIDE 110 MMOL/L (99-107); CREATININE 0.88 MG/DL (0.60-1.10); GLUCOSE 338 MG/DL (70-104); MAGNESIUM 2.2 MG/DL (1.5-2.4); PHOSPHORUS 2.8 MG/DL (2.3-4.5); PREALBUMIN 11.9 MG/DL (19-36); SODIUM 146 MMOL/L (135-145); TOTAL CARBON DIOXIDE 26.6 MMOL/L (24-32); TOTAL PROTEIN 6.4 G/DL (6.4-8.2); VANCOMYCIN,TROUGH 10.8 UG/ML (6.0-14.0); eGFR > 90 ML/MIN
[2022-02-19 03:16] LABS: ABG HCO3 25.2 mmol/L (22.0-26.0); ABG OXYGEN SATURATION 96.7 % (94-97); ABG PCO2 (T) 40.3 mmHg (35.0-48.0); ABG PO2 (T) 85.5 mmHg (75.0-100.0); FCOHb 0.2 % (0.0-3.9); FMetHb 0.2 % (0.0-1.5); FO2Hb 96.3 % (94-97); PATIENT TEMPERATURE 35.7; PEEP 8 cm H2O; RESPIRATORY RATE 16 b/min; TIDAL VOLUME 500 mL; TOTAL HEMOGLOBIN 12.5 G/dl (14.0-17.9)
[2022-02-19 03:45] LABS: POTASSIUM 2.5 MMOL/L (3.5-5.1)
[2022-02-19] MEDS: VANCOMYCIN 1,500MG in normal saline IV soln 300 ML IV SCH (03:50)
[2022-02-19] MEDS: potassium Cl 20mEq/100mL bag 100 ML IV PRN ×4 (03:50→08:10)
[2022-02-19] MEDS: pantoprazole 40MG/NS 100ML BAG 100 ML IV SCH ×2 (07:53→19:19)
[2022-02-19] MEDS: piperacillin/tazo 4.5gm/100ml 100 ML IV SCH ×3 (08:10→23:06)
[2022-02-19] MEDS: clindamycin-Cleocin 900mg/D5W 50 ML IV SCH ×3 (08:10→23:05)
[2022-02-19] MEDS: thiamine 100mg/ml 2ml inj. IV SCH ×2 (08:11→19:19)
[2022-02-19] MEDS: hydrocortisone sod succ/PF 100mg/2ml inj. IV SCH (08:11)
[2022-02-19] MEDS: folic acid 1mg/0.2ml inj IV SCH (08:11)
[2022-02-19] MEDS: MULTIVIT-MIN/FERROUS GLUCONATE 9 MG/15 ML LIQUID NG SCH (08:11)
[2022-02-19] MEDS: insulin glargine (Lantus) pen - multi-dose SQ SCH ×2 (08:17→20:38)
[2022-02-19 09:26] LABS: ISTAT ANION GAP 11 (8-12); ISTAT BUN 20 mg/dL (7-18); ISTAT CL 104 mmol/L (99-107); ISTAT K 4.3 mmol/L (3.5-5.1); ISTAT NA 133 mmol/L (135-145); ISTAT TOTAL CO2 18 mmol/L (24-32)
[2022-02-19 09:27] LABS: ISTAT CREATININE 0.9 mg/dL (0.8-1.3); ISTAT GLUCOSE 299 mg/dL (70-104); ISTAT HGB 15.3 g/dl (14.0-17.9); ISTAT Hct 45 %PCV (42-52); ISTAT IONIZED CALCIUM 1.06 mmol/L (1.03-1.32); ISTAT eGFR > 90 ML/MIN; POC BUN/CREATININE RATIO 22.2 (5.4-32.0)
[2022-02-19] MEDS ORDERED: insulin glargine (Lantus) pen - multi-dose SQ ONE (10:55)
--- NOTE | 2022-02-19 11:48 | NUR ---
F/u 02/19: Pt remains intubated w/ Propofol increased to 51.3ml/hr by rehabilitation psychologist per RN this AM; now providing additional 1354 kcals/day. Given this TF recs below adjusted to avoid overfeeding on vent; notified. Only able to meet ~82% estimated protein needs without overfeeding given current Propofol rate. Recommendations: 1) Given Propofol at 51.3 mL/hr (1354 kcal/day), continuous TF using Vital HP at 50mL/hr goal rate to provide 1200mL total volume/day, 1200 kcals, 105g protein, and 1003mL water 2) IF Propofol discontinued, continuous Vital AF with 85 mL/hr goal 3) Monitor Propofol rate and need to adjust TF recs 4) Monitor serum Na and appropriateness for water flushes; pt would benefit from Norman BID to assist with wound healing 5) Prealbumin q Saturday/ 6) Daily scaled weights 7) Continue routine Thiamine, Folic acid, and MVM with iron d/t EtOH hx 8) Advance to low fiber CHO controlled diet as medically indicated following extubation 9) DM education once appropriate following extubation and official DM dx by physician; A1c 10.1% with no PMH DM (MD aware) 10) Bowel care per physician Addendum: 02/19/22 at [address] Amended: Links added.
[2022-02-19] MEDS: VANCOmycin 1250MG/NS 250ml Bag 250 ML IV SCH ×2 (11:58→19:19)
[2022-02-19] MEDS ORDERED: potassium Cl 20 mEq SR tablet NG SCH (14:00)
[2022-02-19] MEDS: DOBUTamine-DoBUTrex 500mg/D5W 250 ML IV SCH (15:20)
[2022-02-19] MEDS ORDERED: DEXTROSE 15 GM of carb/4 tabs (each vial/BOTTLE has 4 tablets) NG PRN ×2 (17:28)
[2022-02-19] MEDS: POTASSIUM BICARB 20meq eff tab 20 MEQ TABLET.EFF NG SCH (19:20)
[2022-02-20] VITALS (36 sets, daily range): BP systolic 100–157; BP diastolic 40–79
[2022-02-20] MEDS: furosemide 20 MG/2 ML vial IV SCH ×4 (01:15→20:00)
[2022-02-20] MEDS: propofol 1000mg/100ml bottle 100 ML IV SCH ×10 (01:16→23:19)
[2022-02-20] MEDS: POTASSIUM BICARB 20meq eff tab 20 MEQ TABLET.EFF NG SCH ×4 (01:16→20:04)
[2022-02-20] MEDS: albumin (Human) 5% 250ml 250 ML IV SCH ×2 (01:59→05:23)
[2022-02-20] MEDS: mineral oil/petrolatum ophthal oint EACHEYE SCH ×4 (02:05→20:04)
[2022-02-20] MEDS: fentaNYL/NS/PF 2,500 mcg/250mL 250 ML IV PRN ×2 (02:37→20:04)
[2022-02-20 02:57] LABS: BASOPHILS % (AUTO) 0.3 % (0-1); EOSINOPHILS % (AUTO) 0.3 % (0-6); HEMATOCRIT 34.7 % (42.0-52.0); HEMOGLOBIN 11.8 g/dl (14.0-17.9); LYMPHOCYTES # (AUTO) 1.1 X10'3 (1.1-4.8); LYMPHOCYTES % (AUTO) 16.2 % (21-51); MEAN CORPUSCULAR HEMOGLOBIN 34.1 PG (27.0-31.0); MEAN CORPUSCULAR VOLUME 100.4 FL (78-98); MEAN PLATELET VOLUME 8.8 FL (7.4-10.4); MONOCYTES # (AUTO) 0.5 X10'3 (0-0.9); MONOCYTES % (AUTO) 8.2 % (2-12); PLATELET COUNT 125 X10'3 (140-440); RED BLOOD COUNT 3.45 X10'6 (4.70-6.10); WHITE BLOOD COUNT 6.7 X10'3 (4.5-11.0)
[2022-02-20 03:25] LABS: ABG BASE EXCESS 8.9 mmol/L (-2.0-2.0); ABG HCO3 33.4 mmol/L (22.0-26.0); ABG OXYGEN SATURATION 95.5 % (94-97); ABG PCO2 (T) 43.4 mmHg (35.0-48.0); ABG PO2 (T) 68.2 mmHg (75.0-100.0); FCOHb 0.1 % (0.0-3.9); FMetHb 0.1 % (0.0-1.5); FO2Hb 95.3 % (94-97); PATIENT TEMPERATURE 35.9; PEEP 8 cm H2O; RESPIRATORY RATE 16 b/min; TIDAL VOLUME 550 mL; TOTAL HEMOGLOBIN 12.7 G/dl (14.0-17.9)
[2022-02-20 03:26] LABS: ALANINE AMINOTRANSFERASE 22 U/L (12-78); ALBUMIN 3.8 G/DL (3.4-5.0); ALBUMIN/GLOBULIN RATIO 1.4 (1.1-1.5); ALKALINE PHOSPHATASE 54 IU/L (46-116); ANION GAP 10 (8-16); ASPARTATE AMINO TRANSFERASE 23 U/L (10-37); BILIRUBIN,TOTAL 0.9 MG/DL (0.1-1.0); BLOOD UREA NITROGEN 26 MG/DL (7-18); BUN/CREATININE RATIO 31.7 (5.4-32.0); CALCIUM 8.7 MG/DL (8.5-10.1); CHLORIDE 111 MMOL/L (99-107); CREATININE 0.82 MG/DL (0.60-1.10); GLUCOSE 154 MG/DL (70-104); MAGNESIUM 2.1 MG/DL (1.5-2.4); PHOSPHORUS 2.9 MG/DL (2.3-4.5); SODIUM 152 MMOL/L (135-145); TOTAL CARBON DIOXIDE 31.2 MMOL/L (24-32); TOTAL PROTEIN 6.5 G/DL (6.4-8.2); eGFR > 90 ML/MIN
[2022-02-20 03:29] LABS: POTASSIUM 2.9 MMOL/L (3.5-5.1)
[2022-02-20] MEDS: insulin regular, human U-100 3ml vial - multi-dose SQ SCH ×7 (04:00→23:20)
[2022-02-20] MEDS: potassium Cl 20mEq/100mL bag 100 ML IV PRN ×6 (04:18→17:05)
--- NOTE | 2022-02-20 06:30 | NUR ---
Patient in room CICU 2014. I have received report from RANJAN Palomares and had the opportunity to ask questions and assume patient care.
[2022-02-20] MEDS: pantoprazole 40MG/NS 100ML BAG 100 ML IV SCH ×2 (07:42→19:51)
[2022-02-20] MEDS: thiamine 100mg/ml 2ml inj. IV SCH ×2 (07:42→19:51)
[2022-02-20] MEDS: insulin glargine (Lantus) pen - multi-dose SQ SCH ×2 (07:53→18:32)
[2022-02-20] MEDS: MULTIVIT-MIN/FERROUS GLUCONATE 9 MG/15 ML LIQUID NG SCH (08:00)
[2022-02-20] MEDS: folic acid 1mg/0.2ml inj IV SCH (08:15)
[2022-02-20] MEDS: clindamycin-Cleocin 900mg/D5W 50 ML IV SCH ×3 (08:16→23:19)
[2022-02-20] MEDS: piperacillin/tazo 4.5gm/100ml 100 ML IV SCH ×3 (10:30→23:19)
[2022-02-20] MEDS ORDERED: dextrose 5%-lactated ringers 1,000 ML IV SCH (11:25)
[2022-02-20] MEDS ORDERED: sevoflurane 250ml liquid IH ONE (11:28)
[2022-02-20] MEDS ORDERED: VANCOMYCIN LEVEL IV ONE (11:30)
--- NOTE | 2022-02-20 11:30 | NUR ---
Pt out to OR
[2022-02-20] MEDS ORDERED: midazolam 1 mg/ML 2ml injection ONE (12:35)
[2022-02-20] MEDS ORDERED: rocuronium 10mg/ml inj IV ONE (12:35)
[2022-02-20] MEDS ORDERED: PEG 3350/Na sulf,bicarb,Cl/KCl oral sol 4 liter bottle PO ONE (12:40)
[2022-02-20] MEDS ORDERED: naloxone 0.4 mg/ml inj IV PRN (12:40)
--- NOTE | 2022-02-20 13:00 | NUR ---
Pt back from OR
[2022-02-20] MEDS: dextrose 5%-water 1,000 ML IV SCH (13:12)
[2022-02-20] MEDS: metoclopramide 5 mg/ml inj IV SCH ×2 (14:39→19:52)
[2022-02-20] MEDS: heparin, porcine 5000 units/ml vial SQ SCH (15:53)
--- NOTE | 2022-02-20 18:30 | NUR ---
Problems reprioritized. Patient report given, questions answered & plan of care reviewed with RANJAN Palomares.
[2022-02-20 20:17] LABS: ALBUMIN 3.4 G/DL (3.4-5.0); ANION GAP 7 (8-16); BLOOD UREA NITROGEN 23 MG/DL (7-18); BUN/CREATININE RATIO 27.7 (5.4-32.0); CALCIUM 8.4 MG/DL (8.5-10.1); CHLORIDE 114 MMOL/L (99-107); CREATININE 0.83 MG/DL (0.60-1.10); GLUCOSE 64 MG/DL (70-104); POTASSIUM 3.3 MMOL/L (3.5-5.1); SODIUM 154 MMOL/L (135-145); TOTAL CARBON DIOXIDE 32.8 MMOL/L (24-32); eGFR > 90 ML/MIN
[2022-02-20] MEDS ORDERED: DOBUTamine-DoBUTrex 500mg/D5W 250 ML IV SCH (21:05)
[2022-02-21] VITALS (36 sets, daily range): BP systolic 87–151; BP diastolic 38–96
[2022-02-21] MEDS: furosemide 20 MG/2 ML vial IV SCH ×4 (02:18→20:00)
[2022-02-21] MEDS: POTASSIUM BICARB 20meq eff tab 20 MEQ TABLET.EFF NG SCH ×4 (02:18→20:24)
[2022-02-21] MEDS: mineral oil/petrolatum ophthal oint EACHEYE SCH ×4 (02:18→20:16)
[2022-02-21] MEDS: metoclopramide 5 mg/ml inj IV SCH ×2 (02:18→08:34)
[2022-02-21 02:50] LABS: ABG BASE EXCESS 11.1 mmol/L (-2.0-2.0); ABG HCO3 35.2 mmol/L (22.0-26.0); ABG OXYGEN SATURATION 94.7 % (94-97); ABG PCO2 (T) 46.1 mmHg (35.0-48.0); ABG PO2 (T) 76.6 mmHg (75.0-100.0); FMetHb 0.2 % (0.0-1.5); FO2Hb 94.5 % (94-97); PEEP 8 cm H2O; RESPIRATORY RATE 14 b/min; TIDAL VOLUME 550 mL; TOTAL HEMOGLOBIN 12.5 G/dl (14.0-17.9)
[2022-02-21 02:54] LABS: BASOPHILS % (AUTO) 0.2 % (0-1); EOSINOPHILS % (AUTO) 0.2 % (0-6); HEMATOCRIT 33.6 % (42.0-52.0); HEMOGLOBIN 11.4 g/dl (14.0-17.9); LYMPHOCYTES # (AUTO) 1.6 X10'3 (1.1-4.8); LYMPHOCYTES % (AUTO) 12.7 % (21-51); MEAN CORPUSCULAR HEMOGLOBIN 33.6 PG (27.0-31.0); MEAN CORPUSCULAR HGB CONC 33.8 g/dL (33.0-36.5); MEAN CORPUSCULAR VOLUME 99.5 FL (78-98); MEAN PLATELET VOLUME 8.9 FL (7.4-10.4); MONOCYTES # (AUTO) 0.6 X10'3 (0-0.9); MONOCYTES % (AUTO) 4.7 % (2-12); NEUTROPHILS # (AUTO) 10.2 X10'3 (1.8-7.7); NEUTROPHILS % (AUTO) 82.2 % (42-75); PLATELET COUNT 122 X10'3 (140-440); RED BLOOD COUNT 3.38 X10'6 (4.70-6.10); RED CELL DISTRIBUTION WIDTH 14.4 % (11.5-14.5); WHITE BLOOD COUNT 12.4 X10'3 (4.5-11.0)
[2022-02-21 03:11] LABS: ALANINE AMINOTRANSFERASE 27 U/L (12-78); ALBUMIN 3.2 G/DL (3.4-5.0); ALBUMIN/GLOBULIN RATIO 1.3 (1.1-1.5); ALKALINE PHOSPHATASE 60 IU/L (46-116); ANION GAP 7 (8-16); ASPARTATE AMINO TRANSFERASE 38 U/L (10-37); BILIRUBIN,TOTAL 1.2 MG/DL (0.1-1.0); BLOOD UREA NITROGEN 20 MG/DL (7-18); CALCIUM 8.2 MG/DL (8.5-10.1); CHLORIDE 112 MMOL/L (99-107); MAGNESIUM 1.8 MG/DL (1.5-2.4); PHOSPHORUS 3.1 MG/DL (2.3-4.5); POTASSIUM 3.1 MMOL/L (3.5-5.1); SODIUM 152 MMOL/L (135-145); TOTAL CARBON DIOXIDE 33.2 MMOL/L (24-32); TOTAL PROTEIN 5.7 G/DL (6.4-8.2); eGFR > 90 ML/MIN
[2022-02-21 03:12] LABS: GLUCOSE 99 MG/DL (70-104)
[2022-02-21] MEDS: insulin regular, human U-100 3ml vial - multi-dose SQ SCH ×5 (04:00→21:34)
[2022-02-21] MEDS: fentaNYL/NS/PF 2,500 mcg/250mL 250 ML IV PRN (05:26)
[2022-02-21] MEDS: dextrose 5%-water 1,000 ML IV SCH ×3 (05:26→16:38)
[2022-02-21] MEDS: propofol 1000mg/100ml bottle 100 ML IV SCH ×5 (05:44→23:59)
[2022-02-21] MEDS: pantoprazole 40MG/NS 100ML BAG 100 ML IV SCH ×2 (08:34→20:23)
[2022-02-21] MEDS: thiamine 100mg/ml 2ml inj. IV SCH ×2 (08:34→20:24)
[2022-02-21] MEDS: heparin, porcine 5000 units/ml vial SQ SCH ×3 (08:35→16:17)
[2022-02-21] MEDS: clindamycin-Cleocin 900mg/D5W 50 ML IV SCH ×2 (08:36→15:56)
[2022-02-21] MEDS: MULTIVIT-MIN/FERROUS GLUCONATE 9 MG/15 ML LIQUID NG SCH (08:40)
[2022-02-21] MEDS: folic acid 1mg/0.2ml inj IV SCH (08:40)
[2022-02-21] MEDS: insulin glargine (Lantus) pen - multi-dose SQ SCH (09:10)
[2022-02-21] MEDS: piperacillin/tazo 4.5gm/100ml 100 ML IV SCH ×2 (09:32→17:52)
[2022-02-21] MEDS ORDERED: LIDOcaine 1% 30ml preserv. free vial ONE (11:13)
[2022-02-21] MEDS ORDERED: BUPIVAcaine 0.5% inj/PF 30 ML ONE (11:13)
[2022-02-21] MEDS ORDERED: sevoflurane 250ml liquid IH ONE (12:35)
[2022-02-21] MEDS ORDERED: propofol 10mg/ml 20ml vial IV ONE (12:35)
[2022-02-21] MEDS ORDERED: MIDAZolam 1 MG/ML 5ML VIAL ONE (12:37)
[2022-02-21] MEDS ORDERED: fentaNYL /PF 50mcg/ml 5ml ampule ONE (12:37)
[2022-02-21] MEDS ORDERED: rocuronium 10mg/ml inj IV ONE (12:38)
[2022-02-21] MEDS: potassium Cl 20mEq/100mL bag 100 ML IV PRN ×2 (12:39→16:18)
[2022-02-21 13:37] LABS: POTASSIUM 3.3 MMOL/L (3.5-5.1)
--- NOTE | 2022-02-21 14:15 | NUR ---
Reassessment: Pt remains intubated, to get colostomy placement today. TF has been off since 2 d/t pt to OR 02/20 for further I&D. Pt receiving D5 at 100 mL/hr providing 408 kcal/day. Propofol visualized at bedside to be running at 45 mcg/kg/min (34.56 mL/hr) providing 912 kcal/day. TF to resume post-op per MD at [facility]. TF will likely need to be adjusted based on Propofol rate. Patient's SO seen at bedside to discuss ABW as patient's wt ranges 85.7-131 kg throughout LOS. Per SO pt used to weigh around 185 lbs (84 kg) however is now likely closer to 250 lbs (113.6 kg). LBM 02/20. Will continue to follow closely. Recommendations: 1) Given Propofol at 34.56 mL/hr (912 kcal/day), continuous TF using Vital HP at 55 mL/hr goal rate to provide 1320 mL total volume/day, 1320 kcal, 116 g protein, and 1104 mL water EMR needs to be updated once TF to resume 2) IF Propofol discontinued, continuous Vital HP with 90 mL/hr goal 3) Monitor Propofol rate and need to adjust TF recs 4) Monitor serum Na and appropriateness for water flushes; pt would benefit from Norman BID to assist with wound healing 5) Prealbumin q Saturday/ 6) Daily scaled weights 7) Continue routine Thiamine, Folic acid, and MVM with iron d/t EtOH hx 8) Advance to low fiber CHO controlled diet as medically indicated following extubation 9) DM education once appropriate following extubation and official DM dx by physician; A1c 10.1% with no PMH DM (MD aware) 10) Bowel care per physician Addendum: 02/21/22 at [address] Amended: Links added.
[2022-02-21] MEDS ORDERED: INDOCYANINE GREEN 25 MG/10 ML VIAL IV ONE (14:18)
[2022-02-21] MEDS ORDERED: BUPIVAcaine 0.5% inj/PF 30 ml vial IJ ONE (14:19)
[2022-02-21] MEDS ORDERED: naloxone 0.4 mg/ml inj IV PRN (15:25)
--- NOTE | 2022-02-21 18:36 | NUR ---
Patient in room CICU 2014. I have received report from RANJAN Cortez and had the opportunity to ask questions and assume patient care.
[2022-02-21] MEDS ORDERED: albumin (human) 25% 100ml IV 100 ML in dextrose 5% water 500ml 400 ML IV ONE (19:50)
[2022-02-21] MEDS ORDERED: albumin (human) 25% 100ml IV 100 ML in normal saline 500ml IV soln 400 ML IV ONE (20:15)
[2022-02-21 22:44] LABS: ALBUMIN 2.8 G/DL (3.4-5.0); ALKALINE PHOSPHATASE 61 IU/L (46-116); BLOOD UREA NITROGEN 18 MG/DL (7-18); BUN/CREATININE RATIO 18.9 (5.4-32.0); CALCIUM 7.5 MG/DL (8.5-10.1); CHLORIDE 106 MMOL/L (99-107); CREATININE 0.95 MG/DL (0.60-1.10); TOTAL CARBON DIOXIDE 32.2 MMOL/L (24-32); eGFR 85 ML/MIN
[2022-02-21 23:29] LABS: ALANINE AMINOTRANSFERASE 27 U/L (12-78); ANION GAP 5 (8-16); ASPARTATE AMINO TRANSFERASE 36 U/L (10-37); BILIRUBIN,TOTAL 1.2 MG/DL (0.1-1.0); GLUCOSE 146 MG/DL (70-104); POTASSIUM 3.8 MMOL/L (3.5-5.1); SODIUM 143 MMOL/L (135-145); TOTAL PROTEIN 5.6 G/DL (6.4-8.2)
[2022-02-22] VITALS (34 sets, daily range): BP systolic 101–130; BP diastolic 47–72
[2022-02-22] MEDS: heparin, porcine 5000 units/ml vial SQ SCH ×3 (00:05→16:25)
[2022-02-22] MEDS: piperacillin/tazo 4.5gm/100ml 100 ML IV SCH ×3 (00:06→16:26)
[2022-02-22] MEDS: clindamycin-Cleocin 900mg/D5W 50 ML IV SCH ×4 (00:09→23:49)
[2022-02-22] MEDS: NORepinephrine 8mg/ 250ml NS 250 ML IV SCH ×3 (01:24→14:00)
[2022-02-22] MEDS: furosemide 20 MG/2 ML vial IV SCH ×4 (01:52→21:08)
[2022-02-22] MEDS: POTASSIUM BICARB 20meq eff tab 20 MEQ TABLET.EFF NG SCH ×4 (01:52→21:08)
[2022-02-22] MEDS: mineral oil/petrolatum ophthal oint EACHEYE SCH ×4 (01:56→20:00)
[2022-02-22] MEDS: dextrose 5%-water 1,000 ML IV SCH ×3 (02:35→16:25)
[2022-02-22 02:51] LABS: BASOPHILS # (AUTO) 0.1 X10'3 (0-0.2); BASOPHILS % (AUTO) 0.4 % (0-1); EOSINOPHILS # (AUTO) 0.2 X10'3 (0-0.9); HEMATOCRIT 34.3 % (42.0-52.0); HEMOGLOBIN 11.4 g/dl (14.0-17.9); LYMPHOCYTES # (AUTO) 1.6 X10'3 (1.1-4.8); LYMPHOCYTES % (AUTO) 9.8 % (21-51); MEAN CORPUSCULAR HEMOGLOBIN 33.7 PG (27.0-31.0); MEAN CORPUSCULAR HGB CONC 33.2 g/dL (33.0-36.5); MEAN CORPUSCULAR VOLUME 101.4 FL (78-98); MEAN PLATELET VOLUME 9.5 FL (7.4-10.4); MONOCYTES # (AUTO) 0.6 X10'3 (0-0.9); MONOCYTES % (AUTO) 3.7 % (2-12); NEUTROPHILS # (AUTO) 13.5 X10'3 (1.8-7.7); NEUTROPHILS % (AUTO) 85.1 % (42-75); PLATELET COUNT 130 X10'3 (140-440); RED BLOOD COUNT 3.38 X10'6 (4.70-6.10); RED CELL DISTRIBUTION WIDTH 14.7 % (11.5-14.5); WHITE BLOOD COUNT 15.9 X10'3 (4.5-11.0)
[2022-02-22 03:02] LABS: ALANINE AMINOTRANSFERASE 26 U/L (12-78); ALBUMIN 3.1 G/DL (3.4-5.0); ALBUMIN/GLOBULIN RATIO 1.1 (1.1-1.5); ALKALINE PHOSPHATASE 65 IU/L (46-116); ANION GAP 9 (8-16); ASPARTATE AMINO TRANSFERASE 35 U/L (10-37); BILIRUBIN,TOTAL 1.3 MG/DL (0.1-1.0); BLOOD UREA NITROGEN 17 MG/DL (7-18); BUN/CREATININE RATIO 17.7 (5.4-32.0); CALCIUM 7.6 MG/DL (8.5-10.1); CHLORIDE 105 MMOL/L (99-107); CREATININE 0.96 MG/DL (0.60-1.10); MAGNESIUM 1.8 MG/DL (1.5-2.4); PHOSPHORUS 2.8 MG/DL (2.3-4.5); POTASSIUM 3.5 MMOL/L (3.5-5.1); SODIUM 145 MMOL/L (135-145); TOTAL CARBON DIOXIDE 31.4 MMOL/L (24-32); eGFR 84 ML/MIN
[2022-02-22 03:03] LABS: GLUCOSE 156 MG/DL (70-104)
[2022-02-22 03:50] LABS: ABG BASE EXCESS 6.8 mmol/L (-2.0-2.0); ABG HCO3 31.4 mmol/L (22.0-26.0); ABG PCO2 (T) 48.3 mmHg (35.0-48.0); ALLEN'S TEST POSITIVE; FCOHb 0.2 % (0.0-3.9); FMetHb 0.3 % (0.0-1.5); FO2Hb 97.5 % (94-97); PATIENT TEMPERATURE 38.6; PEEP 8 cm H2O; RESPIRATORY RATE 14 b/min; TIDAL VOLUME 550 mL; TOTAL HEMOGLOBIN 12.7 G/dl (14.0-17.9)
[2022-02-22] MEDS: propofol 1000mg/100ml bottle 100 ML IV SCH ×7 (03:56→23:47)
[2022-02-22] MEDS: insulin regular, human U-100 3ml vial - multi-dose SQ SCH ×6 (04:00→21:14)
[2022-02-22] MEDS: acetaminophen 325mg/10.15ml oral unit dose solution NG PRN (04:22)
--- NOTE | 2022-02-22 06:23 | NUR ---
Problems reprioritized. Patient report given, questions answered & plan of care reviewed with Arabella WOODRUFF.
[2022-02-22] MEDS: thiamine 100mg/ml 2ml inj. IV SCH ×2 (07:41→21:08)
[2022-02-22] MEDS: MULTIVIT-MIN/FERROUS GLUCONATE 9 MG/15 ML LIQUID NG SCH (07:42)
[2022-02-22] MEDS: folic acid 1mg/0.2ml inj IV SCH (07:43)
[2022-02-22] MEDS: pantoprazole 40MG/NS 100ML BAG 100 ML IV SCH ×2 (07:44→21:08)
[2022-02-22] MEDS: insulin glargine (Lantus) pen - multi-dose SQ SCH (08:14)
--- NOTE | 2022-02-22 08:42 | NUR ---
Spoke with Dr. Barron regarding darkening of pt's stoma. purple around edges. Continuing to monitor, says to be expected.
[2022-02-22] MEDS ORDERED: fentaNYL/PF 50MCG/1 ML 2ML syringe IV PRN (15:15)
[2022-02-22] MEDS ORDERED: acetaZOLAMIDE IV 500mg inj IV ONE (15:15)
[2022-02-22] MEDS ORDERED: dexmedetomidin/NS 400mcg/100ml 100 ML IV SCH (15:15)
[2022-02-22] MEDS: dexmedetomidine inj. 400 MCG in normal saline 100ml IV soln 96 ML IV SCH ×2 (15:40→23:14)
[2022-02-22] MEDS: fentaNYL/NS/PF 2,500 mcg/250mL 250 ML IV PRN (16:28)
--- NOTE | 2022-02-22 18:30 | NUR ---
Patient in room CICU 2014. I have received report from RANJAN Bell and had the opportunity to ask questions and assume patient care.
[2022-02-23] VITALS (36 sets, daily range): BP systolic 87–143; BP diastolic 40–88
[2022-02-23] MEDS: piperacillin/tazo 4.5gm/100ml 100 ML IV SCH ×3 (01:09→15:08)
[2022-02-23] MEDS: heparin, porcine 5000 units/ml vial SQ SCH ×3 (01:10→15:09)
[2022-02-23] MEDS: NORepinephrine 8mg/ 250ml NS 250 ML IV SCH ×2 (01:10→17:52)
[2022-02-23] MEDS: insulin regular, human U-100 3ml vial - multi-dose SQ SCH ×5 (01:18→21:22)
[2022-02-23] MEDS: furosemide 20 MG/2 ML vial IV SCH ×4 (02:33→21:09)
[2022-02-23] MEDS: POTASSIUM BICARB 20meq eff tab 20 MEQ TABLET.EFF NG SCH ×4 (02:33→21:09)
[2022-02-23] MEDS: mineral oil/petrolatum ophthal oint EACHEYE SCH ×4 (02:33→20:00)
[2022-02-23 03:26] LABS: BASOPHILS % (AUTO) 0.2 % (0-1); EOSINOPHILS # (AUTO) 0.2 X10'3 (0-0.9); EOSINOPHILS % (AUTO) 1.1 % (0-6); HEMATOCRIT 35.9 % (42.0-52.0); HEMOGLOBIN 11.9 g/dl (14.0-17.9); LYMPHOCYTES # (AUTO) 1.4 X10'3 (1.1-4.8); LYMPHOCYTES % (AUTO) 10.1 % (21-51); MEAN CORPUSCULAR HEMOGLOBIN 33.7 PG (27.0-31.0); MEAN CORPUSCULAR VOLUME 101.9 FL (78-98); MEAN PLATELET VOLUME 8.7 FL (7.4-10.4); MONOCYTES # (AUTO) 0.7 X10'3 (0-0.9); MONOCYTES % (AUTO) 4.7 % (2-12); NEUTROPHILS # (AUTO) 11.9 X10'3 (1.8-7.7); NEUTROPHILS % (AUTO) 83.9 % (42-75); PLATELET COUNT 153 X10'3 (140-440); RED BLOOD COUNT 3.52 X10'6 (4.70-6.10); RED CELL DISTRIBUTION WIDTH 14.6 % (11.5-14.5); WHITE BLOOD COUNT 14.1 X10'3 (4.5-11.0)
[2022-02-23] MEDS: dexmedetomidine inj. 400 MCG in normal saline 100ml IV soln 96 ML IV SCH ×8 (03:32→22:41)
[2022-02-23] MEDS: propofol 1000mg/100ml bottle 100 ML IV SCH ×3 (03:32→16:54)
[2022-02-23 03:43] LABS: ABG BASE EXCESS 4.8 mmol/L (-2.0-2.0); ABG OXYGEN SATURATION 94.5 % (94-97); ABG PCO2 (T) 47.1 mmHg (35.0-48.0); ABG PO2 (T) 73.3 mmHg (75.0-100.0); ALLEN'S TEST Modified; FCOHb 0.6 % (0.0-3.9); FMetHb 0.1 % (0.0-1.5); FO2Hb 93.8 % (94-97); PATIENT TEMPERATURE 37.4; PEEP 8 cm H2O; RESPIRATORY RATE 14 b/min; TIDAL VOLUME 550 mL; TOTAL HEMOGLOBIN 13.3 G/dl (14.0-17.9)
[2022-02-23 03:45] LABS: ALANINE AMINOTRANSFERASE 25 U/L (12-78); ALBUMIN 2.8 G/DL (3.4-5.0); ALBUMIN/GLOBULIN RATIO 0.8 (1.1-1.5); ALKALINE PHOSPHATASE 96 IU/L (46-116); ANION GAP 5 (8-16); ASPARTATE AMINO TRANSFERASE 27 U/L (10-37); BILIRUBIN,TOTAL 0.9 MG/DL (0.1-1.0); BLOOD UREA NITROGEN 16 MG/DL (7-18); BUN/CREATININE RATIO 16.3 (5.4-32.0); CALCIUM 8.3 MG/DL (8.5-10.1); CHLORIDE 105 MMOL/L (99-107); CREATININE 0.98 MG/DL (0.60-1.10); MAGNESIUM 2.1 MG/DL (1.5-2.4); PHOSPHORUS 3.5 MG/DL (2.3-4.5); POTASSIUM 3.6 MMOL/L (3.5-5.1); SODIUM 140 MMOL/L (135-145); TOTAL CARBON DIOXIDE 29.8 MMOL/L (24-32); TOTAL PROTEIN 6.4 G/DL (6.4-8.2); TRIGLYCERIDES 153 MG/DL (20-135); eGFR 82 ML/MIN
[2022-02-23 03:48] LABS: GLUCOSE 196 MG/DL (70-104)
[2022-02-23] MEDS: dextrose 5%-water 1,000 ML IV SCH (04:01)
--- NOTE | 2022-02-23 06:35 | NUR ---
Problems reprioritized. Patient report given, questions answered & plan of care reviewed with RANJAN Bonds.
[2022-02-23] MEDS: clindamycin-Cleocin 900mg/D5W 50 ML IV SCH ×2 (08:06→15:08)
[2022-02-23] MEDS: pantoprazole 40MG/NS 100ML BAG 100 ML IV SCH ×2 (08:07→21:09)
[2022-02-23] MEDS: thiamine 100mg/ml 2ml inj. IV SCH ×2 (08:19→21:09)
[2022-02-23] MEDS: folic acid 1mg/0.2ml inj IV SCH (08:19)
[2022-02-23] MEDS: MULTIVIT-MIN/FERROUS GLUCONATE 9 MG/15 ML LIQUID NG SCH (08:19)
[2022-02-23] MEDS: sodium chloride 0.45% 1,000 ML IV SCH ×2 (09:16→22:55)
[2022-02-23] MEDS: insulin glargine (Lantus) pen - multi-dose SQ SCH (09:21)
--- NOTE | 2022-02-23 10:52 | NUR ---
Patient in room [facility] 2015. I have received report from Cherelle WOODRUFF and Gwen WOODRUFF and had the opportunity to ask questions and assume patient care. Addendum: 02/23/22 at 1053 by Cammie Pérez RN Disregard time above, report received at 0600.
--- NOTE | 2022-02-23 12:50 | NUR ---
F/u 02/23: Pt remains intubated tolerating TF at goal GRV WNL. Colostomy pending stool output mainly serosanguineous though some stool from rectal previously per RN at rounds. Noted pt Propofol now weaned to off w/ hopes of keeping off per CCR this AM; MD and RD notified of updated EN recs given this. Per digital marketing officer potential for extubation following wound vac placement procedure; is agreeable to keep NG to optimize nutrition status following extubation. Will monitor for further EN tolerance and adjustment needs. Recommendations: 1) Continuous TF per MD using Vital HP at 85mL/hr goal; to provide 2040mL total volume/day, 2040 kcals, 178g protein, and 1705mL water. Advance to 75ml/hr since tolerating prior 55ml/hr rate and advance 20ml Q8H to goal as tolerated. 2) Monitor Propofol rate and need to adjust TF recs 3) KEEP NG IN PLACE TO CONTINUE EN FOLLOWING EXTUBATION; CONTINUE EN UNTIL ADEQUATE PO INTAKE W/ DIET ADVANCEMENT ASSURED 4) Monitor serum Na and appropriateness for water flushes; pt would benefit from Norman BID to assist with wound healing 5) Prealbumin q Saturday/ 6) Daily scaled weights 7) Continue routine Thiamine, Folic acid, and MVM with iron d/t EtOH hx 8) Advance to low fiber CHO controlled diet as medically indicated following extubation 9) DM education once appropriate following extubation and official DM dx by physician; A1c 10.1% with no PMH DM (MD aware). Colostomy education as well 10) Bowel care per physician Addendum: 02/23/22 at [address] Amended: Links added.
--- NOTE | 2022-02-23 18:28 | NUR ---
Problems reprioritized. Patient report given, questions answered & plan of care reviewed with Cherelle WOODRUFF.
[2022-02-24] VITALS (37 sets, daily range): BP systolic 93–111; BP diastolic 47–65
[2022-02-24] MEDS: piperacillin/tazo 4.5gm/100ml 100 ML IV SCH ×3 (00:38→15:42)
[2022-02-24] MEDS: dextrose 5%-1/2 normal saline 1,000 ML IV SCH ×2 (00:38→12:47)
[2022-02-24] MEDS: clindamycin-Cleocin 900mg/D5W 50 ML IV SCH ×3 (00:38→15:42)
[2022-02-24] MEDS: nystatin 15 GM powder TP SCH ×4 (00:49→21:35)
[2022-02-24] MEDS: dexmedetomidine inj. 400 MCG in normal saline 100ml IV soln 96 ML IV SCH ×10 (00:52→22:11)
[2022-02-24] MEDS: fentaNYL/NS/PF 2,500 mcg/250mL 250 ML IV PRN ×3 (00:52→19:57)
[2022-02-24] MEDS: insulin regular, human U-100 3ml vial - multi-dose SQ SCH ×4 (02:00→21:39)
[2022-02-24] MEDS: POTASSIUM BICARB 20meq eff tab 20 MEQ TABLET.EFF NG SCH ×4 (02:58→20:44)
[2022-02-24] MEDS: furosemide 20 MG/2 ML vial IV SCH ×4 (02:59→20:44)
[2022-02-24] MEDS: mineral oil/petrolatum ophthal oint EACHEYE SCH ×4 (02:59→20:43)
[2022-02-24 03:10] LABS: ABG BASE EXCESS 0.1 mmol/L (-2.0-2.0); ABG HCO3 23.1 mmol/L (22.0-26.0); ABG OXYGEN SATURATION 91.7 % (94-97); ABG PCO2 (T) 33.2 mmHg (35.0-48.0); ABG PO2 (T) 63.5 mmHg (75.0-100.0); ALLEN'S TEST Modified; FCOHb 0.9 % (0.0-3.9); FMetHb 0.2 % (0.0-1.5); FO2Hb 90.7 % (94-97); PATIENT TEMPERATURE 37.4; PEEP 5 cm H2O; RESPIRATORY RATE 14 b/min; TIDAL VOLUME 550 mL; TOTAL HEMOGLOBIN 12.6 G/dl (14.0-17.9)
[2022-02-24 03:22] LABS: BASOPHILS % (AUTO) 0.3 % (0-1); EOSINOPHILS # (AUTO) 0.1 X10'3 (0-0.9); EOSINOPHILS % (AUTO) 1.3 % (0-6); HEMATOCRIT 34.6 % (42.0-52.0); HEMOGLOBIN 11.7 g/dl (14.0-17.9); LYMPHOCYTES # (AUTO) 2.2 X10'3 (1.1-4.8); LYMPHOCYTES % (AUTO) 19.6 % (21-51); MEAN CORPUSCULAR HEMOGLOBIN 33.8 PG (27.0-31.0); MEAN CORPUSCULAR HGB CONC 33.7 g/dL (33.0-36.5); MEAN CORPUSCULAR VOLUME 100.5 FL (78-98); MEAN PLATELET VOLUME 9.2 FL (7.4-10.4); MONOCYTES % (AUTO) 9.1 % (2-12); NEUTROPHILS # (AUTO) 7.8 X10'3 (1.8-7.7); NEUTROPHILS % (AUTO) 69.7 % (42-75); PLATELET COUNT 117 X10'3 (140-440); RED BLOOD COUNT 3.45 X10'6 (4.70-6.10); RED CELL DISTRIBUTION WIDTH 13.7 % (11.5-14.5); WHITE BLOOD COUNT 11.2 X10'3 (4.5-11.0)
[2022-02-24] MEDS: NORepinephrine 8mg/ 250ml NS 250 ML IV SCH ×3 (03:40→23:50)
[2022-02-24 03:43] LABS: ALANINE AMINOTRANSFERASE 23 U/L (12-78); ALBUMIN 2.5 G/DL (3.4-5.0); ALBUMIN/GLOBULIN RATIO 0.7 (1.1-1.5); ALKALINE PHOSPHATASE 97 IU/L (46-116); ANION GAP 7 (8-16); ASPARTATE AMINO TRANSFERASE 28 U/L (10-37); BILIRUBIN,TOTAL 1.5 MG/DL (0.1-1.0); BLOOD UREA NITROGEN 23 MG/DL (7-18); BUN/CREATININE RATIO 18.3 (5.4-32.0); CALCIUM 8.5 MG/DL (8.5-10.1); CHLORIDE 104 MMOL/L (99-107); CREATININE 1.26 MG/DL (0.60-1.10); MAGNESIUM 2.2 MG/DL (1.5-2.4); PHOSPHORUS 3.9 MG/DL (2.3-4.5); POTASSIUM 3.5 MMOL/L (3.5-5.1); SODIUM 138 MMOL/L (135-145); TOTAL CARBON DIOXIDE 26.9 MMOL/L (24-32); TOTAL PROTEIN 6.3 G/DL (6.4-8.2); eGFR 61 ML/MIN
[2022-02-24 03:51] LABS: GLUCOSE 120 MG/DL (70-104)
--- NOTE | 2022-02-24 06:29 | NUR ---
Problems reprioritized. Patient report given, questions answered & plan of care reviewed with RANJAN Bonds.
[2022-02-24] MEDS: propofol 1000mg/100ml bottle 100 ML IV SCH ×2 (06:30→14:52)
--- NOTE | 2022-02-24 06:50 | NUR ---
Patient in room CICU 2015. I have received report from Cherelle WOODRUFF and had the opportunity to ask questions and assume patient care.
[2022-02-24] MEDS: MULTIVIT-MIN/FERROUS GLUCONATE 9 MG/15 ML LIQUID NG SCH (07:20)
[2022-02-24] MEDS: pantoprazole 40MG/NS 100ML BAG 100 ML IV SCH ×2 (07:30→20:43)
[2022-02-24] MEDS: thiamine 100mg/ml 2ml inj. IV SCH ×2 (07:31→20:44)
[2022-02-24] MEDS: insulin glargine (Lantus) pen - multi-dose SQ SCH (07:50)
[2022-02-24] MEDS: sodium chloride 0.45% 1,000 ML IV SCH ×2 (08:38→16:14)
[2022-02-24] MEDS: folic acid 1mg/0.2ml inj IV SCH (08:38)
[2022-02-24] MEDS ORDERED: sevoflurane 250ml liquid IH ONE (13:02)
[2022-02-24] MEDS: acetaminophen 325mg/10.15ml oral unit dose solution NG PRN (17:59)
--- NOTE | 2022-02-24 18:21 | NUR ---
Problems reprioritized. Patient report given, questions answered & plan of care reviewed with Mac RN.
--- NOTE | 2022-02-24 20:20 | NUR ---
Communication -Called Dr. Mcdonald regarding pt's fever continues to increase after PO Tylenol. Received order for IV Tylenol.
[2022-02-24] MEDS: acetaminophen 1,000mg/100ml IV 100 ML IV PRN (21:04)
[2022-02-25] VITALS (43 sets, daily range): BP systolic 89–117; BP diastolic 48–68
[2022-02-25] MEDS: dexmedetomidine inj. 400 MCG in normal saline 100ml IV soln 96 ML IV SCH ×3 (00:32→05:27)
[2022-02-25] MEDS: clindamycin-Cleocin 900mg/D5W 50 ML IV SCH ×4 (00:32→23:03)
[2022-02-25] MEDS: piperacillin/tazo 4.5gm/100ml 100 ML IV SCH ×4 (00:32→23:50)
[2022-02-25] MEDS: propofol 1000mg/100ml bottle 100 ML IV SCH ×6 (00:33→23:03)
[2022-02-25] MEDS: dextrose 5%-1/2 normal saline 1,000 ML IV SCH ×2 (00:33→13:30)
[2022-02-25 01:24] LABS: BASOPHILS # (AUTO) 0.1 X10'3 (0-0.2); BASOPHILS % (AUTO) 0.3 % (0-1); EOSINOPHILS # (AUTO) 0.1 X10'3 (0-0.9); EOSINOPHILS % (AUTO) 0.6 % (0-6); HEMATOCRIT 34.4 % (42.0-52.0); LYMPHOCYTES # (AUTO) 2.2 X10'3 (1.1-4.8); LYMPHOCYTES % (AUTO) 11.4 % (21-51); MEAN CORPUSCULAR HEMOGLOBIN 34.3 PG (27.0-31.0); MEAN CORPUSCULAR HGB CONC 34.8 g/dL (33.0-36.5); MEAN CORPUSCULAR VOLUME 98.5 FL (78-98); MEAN PLATELET VOLUME 8.7 FL (7.4-10.4); MONOCYTES # (AUTO) 1.7 X10'3 (0-0.9); MONOCYTES % (AUTO) 9.1 % (2-12); NEUTROPHILS % (AUTO) 78.6 % (42-75); PLATELET COUNT 170 X10'3 (140-440); RED BLOOD COUNT 3.49 X10'6 (4.70-6.10); RED CELL DISTRIBUTION WIDTH 13.7 % (11.5-14.5); WHITE BLOOD COUNT 19.2 X10'3 (4.5-11.0)
[2022-02-25 01:34] LABS: ALANINE AMINOTRANSFERASE 25 U/L (12-78); ALBUMIN 2.3 G/DL (3.4-5.0); ALBUMIN/GLOBULIN RATIO 0.5 (1.1-1.5); ALKALINE PHOSPHATASE 103 IU/L (46-116); ANION GAP 10 (8-16); ASPARTATE AMINO TRANSFERASE 30 U/L (10-37); BILIRUBIN,TOTAL 1.6 MG/DL (0.1-1.0); BLOOD UREA NITROGEN 26 MG/DL (7-18); BUN/CREATININE RATIO 21.3 (5.4-32.0); CALCIUM 7.8 MG/DL (8.5-10.1); CHLORIDE 102 MMOL/L (99-107); CREATININE 1.22 MG/DL (0.60-1.10); GLUCOSE 181 MG/DL (70-104); MAGNESIUM 1.9 MG/DL (1.5-2.4); PHOSPHORUS 3.6 MG/DL (2.3-4.5); POTASSIUM 3.7 MMOL/L (3.5-5.1); SODIUM 134 MMOL/L (135-145); TOTAL CARBON DIOXIDE 21.7 MMOL/L (24-32); TOTAL PROTEIN 6.5 G/DL (6.4-8.2); eGFR 64 ML/MIN
[2022-02-25] MEDS: insulin regular, human U-100 3ml vial - multi-dose SQ SCH ×4 (02:00→19:45)
[2022-02-25] MEDS: POTASSIUM BICARB 20meq eff tab 20 MEQ TABLET.EFF NG SCH ×4 (02:00→20:37)
[2022-02-25] MEDS ORDERED: metoclopramide 5 mg/ml inj IV PRN ×2 (02:00→11:40)
[2022-02-25] MEDS: furosemide 20 MG/2 ML vial IV SCH ×4 (02:00→23:51)
[2022-02-25] MEDS: acetaminophen 1,000mg/100ml IV 100 ML IV PRN (03:29)
[2022-02-25 03:37] LABS: ABG BASE EXCESS 0.7 mmol/L (-2.0-2.0); ABG HCO3 22.4 mmol/L (22.0-26.0); ABG OXYGEN SATURATION 94.3 % (94-97); ABG PCO2 (T) 29.6 mmHg (35.0-48.0); ABG PO2 (T) 74.8 mmHg (75.0-100.0); ALLEN'S TEST Modified; FCOHb 0.3 % (0.0-3.9); FMetHb 0.1 % (0.0-1.5); FO2Hb 93.9 % (94-97); PATIENT TEMPERATURE 38.5; PEEP 5 cm H2O; RESPIRATORY RATE 14 b/min; TIDAL VOLUME 550 mL
[2022-02-25] MEDS: NORepinephrine 8mg/ 250ml NS 250 ML IV SCH ×2 (04:55→20:34)
[2022-02-25] MEDS: pantoprazole 40MG/NS 100ML BAG 100 ML IV SCH ×2 (07:44→20:46)
[2022-02-25] MEDS: MULTIVIT-MIN/FERROUS GLUCONATE 9 MG/15 ML LIQUID NG SCH (07:45)
[2022-02-25] MEDS: thiamine 100mg/ml 2ml inj. IV SCH ×2 (07:45→20:35)
[2022-02-25] MEDS: folic acid 1mg/0.2ml inj IV SCH (07:45)
[2022-02-25] MEDS: nystatin 15 GM powder TP SCH ×3 (07:46→20:35)
[2022-02-25] MEDS: insulin glargine (Lantus) pen - multi-dose SQ SCH (08:43)
[2022-02-25] MEDS: sodium chloride 0.45% 1,000 ML IV SCH ×2 (10:10→23:00)
[2022-02-25] MEDS: potassium Cl 20mEq/100mL bag 100 ML IV PRN ×2 (11:13→12:44)
--- NOTE | 2022-02-25 12:19 | NUR ---
TF Consult: Pt s/p OR yesterday requiring further debridement of necrotizing fasciitis wound. TF restarted at 55ml/hr last night though GRV 520ml twice w/ EN held at this time. TF to restart at 15ml/hr per surgeon this AM. RD d/w RN regarding routine bowel regimen since pt has not had bowel care this admit if MD agreeable; first dose reglan started today per EMR. Noted Propofol restarted now visualized at 23.94ml/hr by RD at bedside providing additional 632 kcals/day. RD d/w RN if TF to advance max goal of 70ml/hr pending further Propofol adjustments. If pt to remains on low rate EN post-op may benefit from supplemental PN to meet nutrition needs; only able to meet ~64% minimum estimated protein needs this admit without overfeeding given Propofol rates. Will continue to follow. Recommendations: 1) Trickle TF at 15ml/hr per MD; using Vital High Protein at 15ml/hr to provide 360ml volume, 360 kcals, 301ml water, and 31g protein. IF to remain at trickle EN consider supplemental PN to meet protein needs. 2) IF EN to advance given Propofol at 23.94ml/hr Providing additional 632 kcals/day; Vital HP at 70ml/hr 3) IF Propofol off; advance Vital HP to 85mL/hr goal; would provide 2040mL total volume/day, 2040 kcals, 178g protein, and 1705mL water. 4) additional water flush 200ml Q6H per digital developer at rounds 5) Monitor Propofol rate and need to adjust TF recs 6) Monitor serum Na and appropriateness for water flushes; pt would benefit from Norman BID to assist with wound healing; Na 134mmol/L this AM 7) routine bowel regimen per physician discretion; promotility agent per MD 8) PALB Q /; Daily scaled wts 9) Continue routine Thiamine, Folic acid, and MVM with iron d/t EtOH hx 10) UPON EXTUBATION, KEEP NG IN PLACE TO CONTINUE EN; CONTINUE EN UNTIL ADEQUATE PO INTAKE W/ DIET ADVANCEMENT ASSURED 11) Advance to low fiber CHO controlled diet as medically indicated following extubation 12) DM diet ed once appropriate following extubation and official DM dx by physician; A1c 10.1% with no PMH DM (MD aware). Colostomy diet ed as well Addendum: 02/25/22 at [address] Amended: Links added.
[2022-02-25] MEDS: fentaNYL/NS/PF 2,500 mcg/250mL 250 ML IV PRN (17:07)
[2022-02-25] MEDS: heparin, porcine 5000 units/ml vial SQ SCH (20:35)
[2022-02-26] VITALS (47 sets, daily range): BP systolic 91–126; BP diastolic 39–78
[2022-02-26] MEDS: fentaNYL/NS/PF 2,500 mcg/250mL 250 ML IV PRN ×3 (01:54→20:54)
[2022-02-26] MEDS: propofol 1000mg/100ml bottle 100 ML IV SCH ×7 (01:55→20:58)
[2022-02-26] MEDS: POTASSIUM BICARB 20meq eff tab 20 MEQ TABLET.EFF NG SCH ×4 (01:56→20:29)
[2022-02-26] MEDS: dextrose 5%-1/2 normal saline 1,000 ML IV SCH (02:00)
[2022-02-26] MEDS: insulin regular, human U-100 3ml vial - multi-dose SQ SCH ×4 (02:26→20:28)
[2022-02-26 03:03] LABS: BASOPHILS % (AUTO) 0.4 % (0-1); EOSINOPHILS # (AUTO) 0.1 X10'3 (0-0.9); EOSINOPHILS % (AUTO) 1.1 % (0-6); HEMATOCRIT 31.6 % (42.0-52.0); HEMOGLOBIN 11.2 g/dl (14.0-17.9); LYMPHOCYTES # (AUTO) 1.8 X10'3 (1.1-4.8); LYMPHOCYTES % (AUTO) 15.1 % (21-51); MEAN CORPUSCULAR HEMOGLOBIN 35.9 PG (27.0-31.0); MEAN CORPUSCULAR HGB CONC 35.6 g/dL (33.0-36.5); MEAN CORPUSCULAR VOLUME 100.8 FL (78-98); MEAN PLATELET VOLUME 9.2 FL (7.4-10.4); MONOCYTES # (AUTO) 1.5 X10'3 (0-0.9); MONOCYTES % (AUTO) 12.1 % (2-12); NEUTROPHILS # (AUTO) 8.6 X10'3 (1.8-7.7); NEUTROPHILS % (AUTO) 71.3 % (42-75); PLATELET COUNT 154 X10'3 (140-440); RED BLOOD COUNT 3.13 X10'6 (4.70-6.10); RED CELL DISTRIBUTION WIDTH 13.8 % (11.5-14.5)
[2022-02-26 03:20] LABS: ALKALINE PHOSPHATASE 126 IU/L (46-116); ANION GAP 6 (8-16); BLOOD UREA NITROGEN 24 MG/DL (7-18); BUN/CREATININE RATIO 22.2 (5.4-32.0); CHLORIDE 100 MMOL/L (99-107); CREATININE 1.08 MG/DL (0.60-1.10); MAGNESIUM 1.8 MG/DL (1.5-2.4); SODIUM 133 MMOL/L (135-145); TOTAL CARBON DIOXIDE 27.5 MMOL/L (24-32); eGFR 73 ML/MIN
[2022-02-26 03:32] LABS: ALANINE AMINOTRANSFERASE 16 U/L (12-78); ASPARTATE AMINO TRANSFERASE 27 U/L (10-37)
[2022-02-26 03:37] LABS: ALBUMIN/GLOBULIN RATIO 0.5 (1.1-1.5); BILIRUBIN,TOTAL 1.2 MG/DL (0.1-1.0); CALCIUM 6.4 MG/DL (8.5-10.1); GLUCOSE 167 MG/DL (70-104); PHOSPHORUS 3.7 MG/DL (2.3-4.5); POTASSIUM 3.4 MMOL/L (3.5-5.1); TOTAL PROTEIN 5.9 G/DL (6.4-8.2)
[2022-02-26] MEDS: potassium Cl 20mEq/100mL bag 100 ML IV PRN ×2 (03:55→04:55)
[2022-02-26] MEDS: NORepinephrine 8mg/ 250ml NS 250 ML IV SCH ×2 (03:56→12:11)
[2022-02-26 04:15] LABS: ABG BASE EXCESS 1.5 mmol/L (-2.0-2.0); ABG OXYGEN SATURATION 96.6 % (94-97); ABG PCO2 (T) 42.3 mmHg (35.0-48.0); ABG PO2 (T) 97.9 mmHg (75.0-100.0); ALLEN'S TEST Modified; FCOHb 0.3 % (0.0-3.9); FMetHb 0.2 % (0.0-1.5); FO2Hb 96.1 % (94-97); PEEP 8 cm H2O; RESPIRATORY RATE 14 b/min; TIDAL VOLUME 550 mL
[2022-02-26] MEDS: pantoprazole 40MG/NS 100ML BAG 100 ML IV SCH ×2 (06:50→20:22)
[2022-02-26] MEDS: acetaminophen 325mg/10.15ml oral unit dose solution NG PRN ×3 (06:52→20:25)
[2022-02-26] MEDS: piperacillin/tazo 4.5gm/100ml 100 ML IV SCH (07:30)
[2022-02-26] MEDS: clindamycin-Cleocin 900mg/D5W 50 ML IV SCH ×2 (07:33→15:16)
[2022-02-26] MEDS: folic acid 1mg/0.2ml inj IV SCH (07:34)
[2022-02-26] MEDS: furosemide 20 MG/2 ML vial IV SCH ×3 (07:35→20:23)
[2022-02-26] MEDS: thiamine 100mg/ml 2ml inj. IV SCH ×2 (07:35→20:24)
[2022-02-26] MEDS: MULTIVIT-MIN/FERROUS GLUCONATE 9 MG/15 ML LIQUID NG SCH (07:35)
[2022-02-26] MEDS: heparin, porcine 5000 units/ml vial SQ SCH ×2 (07:36→20:24)
[2022-02-26] MEDS: nystatin 15 GM powder TP SCH ×3 (08:00→20:30)
[2022-02-26] MEDS: insulin glargine (Lantus) pen - multi-dose SQ SCH (08:22)
--- NOTE | 2022-02-26 10:27 | NUR ---
ROUNDS NOTE: Dc free water, IVFs, decrease Lasix dose. Wound care changing dressing now.
--- NOTE | 2022-02-26 11:09 | NUR ---
Dr. Castelan here.
--- NOTE | 2022-02-26 12:01 | NUR ---
F/u 02/26: Pt TF advanced last night currently at 50ml/hr this AM. Noted Propofol now at 30.786ml/hr providing additional 813 kcals/day. RD d/w RN max EN rate 55ml/hr w/ current Propofol rate. RD notified loin puller of inability to meet pt protein needs this LOS given Propofol infusions. Free water to stop given serum Na 133mmol/L this AM per MD. Recommendations: 1) Given Propofol at 30.786 ml/hr providing additional 813 kcals/day; Vital High Protein at 55ml/hr to provide 1320ml volume, 1320 kcals, 1104ml water, and 115g protein. IF to remain at trickle EN consider supplemental PN to meet protein needs. 2) IF Propofol off; advance Vital HP to 85mL/hr goal; would provide 2040mL total volume/day, 2040 kcals, 178g protein, and 1705mL water. 3) additional water flush per loin puller; serum Na 133mmol/L this AM 4) Monitor Propofol rate and need to adjust TF recs 5) Monitor serum Na and appropriateness for water flushes; pt would benefit from Norman BID to assist with wound healing; Na 134mmol/L this AM 6) routine bowel regimen per physician discretion; promotility agent per MD 7) PALB Q /; Daily scaled wts 8) Continue routine Thiamine, Folic acid, and MVM with iron d/t EtOH hx 9) UPON EXTUBATION, KEEP NG IN PLACE TO CONTINUE EN; CONTINUE EN UNTIL ADEQUATE PO INTAKE W/ DIET ADVANCEMENT ASSURED 10) Advance to low fiber CHO controlled diet as medically indicated following extubation 11) DM diet ed once appropriate following extubation and official DM dx by physician; A1c 10.1% with no PMH DM (MD aware). Colostomy diet ed as well Addendum: 02/26/22 at [address] Amended: Links added.
[2022-02-26] MEDS: cefepime 2g/NS 100ml ADVANTAGE 100 ML IV SCH (15:48)
--- NOTE | 2022-02-26 18:03 | NUR ---
Problems reprioritized. Patient report given, questions answered & plan of care reviewed with Radha WOODRUFF.
[2022-02-27] VITALS (33 sets, daily range): BP systolic 101–131; BP diastolic 39–60
[2022-02-27] MEDS: cefepime 2g/NS 100ml ADVANTAGE 100 ML IV SCH ×4 (00:01→23:17)
[2022-02-27] MEDS: clindamycin-Cleocin 900mg/D5W 50 ML IV SCH ×4 (00:02→23:20)
[2022-02-27] MEDS: propofol 1000mg/100ml bottle 100 ML IV SCH ×6 (00:43→22:12)
[2022-02-27 01:57] LABS: BASOPHILS # (AUTO) 0.1 X10'3 (0-0.2); BASOPHILS % (AUTO) 0.6 % (0-1); EOSINOPHILS # (AUTO) 0.1 X10'3 (0-0.9); HEMATOCRIT 27.6 % (42.0-52.0); HEMOGLOBIN 9.6 g/dl (14.0-17.9); LYMPHOCYTES # (AUTO) 1.9 X10'3 (1.1-4.8); LYMPHOCYTES % (AUTO) 19.9 % (21-51); MEAN CORPUSCULAR HEMOGLOBIN 34.3 PG (27.0-31.0); MEAN CORPUSCULAR HGB CONC 34.7 g/dL (33.0-36.5); MEAN PLATELET VOLUME 9.2 FL (7.4-10.4); MONOCYTES # (AUTO) 1.1 X10'3 (0-0.9); MONOCYTES % (AUTO) 11.8 % (2-12); NEUTROPHILS # (AUTO) 6.3 X10'3 (1.8-7.7); NEUTROPHILS % (AUTO) 66.7 % (42-75); PLATELET COUNT 146 X10'3 (140-440); RED BLOOD COUNT 2.79 X10'6 (4.70-6.10); RED CELL DISTRIBUTION WIDTH 13.7 % (11.5-14.5); WHITE BLOOD COUNT 9.4 X10'3 (4.5-11.0)
[2022-02-27 02:11] LABS: ALANINE AMINOTRANSFERASE 29 U/L (12-78); ALBUMIN 2.1 G/DL (3.4-5.0); ALBUMIN/GLOBULIN RATIO 0.5 (1.1-1.5); ALKALINE PHOSPHATASE 149 IU/L (46-116); ANION GAP 6 (8-16); ASPARTATE AMINO TRANSFERASE 36 U/L (10-37); BILIRUBIN,TOTAL 0.7 MG/DL (0.1-1.0); BLOOD UREA NITROGEN 28 MG/DL (7-18); BUN/CREATININE RATIO 23.7 (5.4-32.0); CALCIUM 8.2 MG/DL (8.5-10.1); CHLORIDE 104 MMOL/L (99-107); CREATININE 1.18 MG/DL (0.60-1.10); GLUCOSE 213 MG/DL (70-104); MAGNESIUM 2.1 MG/DL (1.5-2.4); PHOSPHORUS 3.1 MG/DL (2.3-4.5); POTASSIUM 3.8 MMOL/L (3.5-5.1); SODIUM 139 MMOL/L (135-145); TOTAL CARBON DIOXIDE 28.8 MMOL/L (24-32); TOTAL PROTEIN 6.3 G/DL (6.4-8.2); eGFR 66 ML/MIN
[2022-02-27] MEDS: POTASSIUM BICARB 20meq eff tab 20 MEQ TABLET.EFF NG SCH ×4 (02:11→19:27)
[2022-02-27] MEDS: furosemide 20 MG/2 ML vial IV SCH ×4 (02:11→19:26)
[2022-02-27] MEDS: NORepinephrine 8mg/ 250ml NS 250 ML IV SCH ×3 (02:15→22:25)
[2022-02-27] MEDS: insulin regular, human U-100 3ml vial - multi-dose SQ SCH ×4 (02:24→20:00)
[2022-02-27 03:50] LABS: ABG BASE EXCESS 3.1 mmol/L (-2.0-2.0); ABG HCO3 25.8 mmol/L (22.0-26.0); ABG OXYGEN SATURATION 96.5 % (94-97); ABG PO2 (T) 99.1 mmHg (75.0-100.0); ALLEN'S TEST Modified; FCOHb 0.2 % (0.0-3.9); FMetHb 0.3 % (0.0-1.5); PATIENT TEMPERATURE 38.4; PEEP 8 cm H2O; RESPIRATORY RATE 14 b/min; TIDAL VOLUME 550 mL; TOTAL HEMOGLOBIN 10.2 G/dl (14.0-17.9)
[2022-02-27] MEDS: fentaNYL/NS/PF 2,500 mcg/250mL 250 ML IV PRN ×2 (06:23→14:07)
[2022-02-27] MEDS: pantoprazole 40MG/NS 100ML BAG 100 ML IV SCH ×2 (07:06→19:26)
[2022-02-27] MEDS: thiamine 100mg/ml 2ml inj. IV SCH ×2 (07:29→19:25)
[2022-02-27] MEDS: insulin glargine (Lantus) pen - multi-dose SQ SCH (07:42)
[2022-02-27] MEDS: MULTIVIT-MIN/FERROUS GLUCONATE 9 MG/15 ML LIQUID NG SCH (07:52)
[2022-02-27] MEDS: folic acid 1mg/0.2ml inj IV SCH (07:53)
[2022-02-27] MEDS: heparin, porcine 5000 units/ml vial SQ SCH ×2 (08:00→19:25)
[2022-02-27] MEDS: acetaminophen 325mg/10.15ml oral unit dose solution NG PRN ×2 (08:19→14:57)
[2022-02-27] MEDS: nystatin 15 GM powder TP SCH ×3 (08:21→19:27)
--- NOTE | 2022-02-27 08:48 | NUR ---
No orders for OR. Pt's upset and yelling. Tube Feeds stopped per 's request in the even pt. goes to OR today. Dr. Cintron and Charge aware.
--- NOTE | 2022-02-27 10:37 | NUR ---
ROUNDS NOTE: Dr. Cintron spoke with Dr. Wright who stated he will round on pt. today and let us know the plan of care
--- NOTE | 2022-02-27 11:15 | NUR ---
Dressing should be changed BID. Waiting for Dr. Wright to round to see it patient is going to OR today so as not to inflict unneeded pain onto patient that the dressing changes cause. Dr. Cintron attempted to obtain the info via phone this morning but was not given a yes or no answer.
--- NOTE | 2022-02-27 12:35 | NUR ---
Dr. Barron in to see pt. Will take pt. to OR around 1600 today to explore wound and possibly place wound vac. Stated pt. does not need to be NPO or that Heparin has to be held.
--- NOTE | 2022-02-27 13:40 | NUR ---
Dr. Castelan in to see pt.
--- NOTE | 2022-02-27 14:20 | NUR ---
Dr. Bonilla in to see pt.
[2022-02-27] MEDS: fluconazole/NS 400mg/200ml bag 200 ML IV SCH (14:36)
[2022-02-28] VITALS (34 sets, daily range): BP systolic 92–139; BP diastolic 38–68
[2022-02-28] MEDS: fentaNYL/NS/PF 2,500 mcg/250mL 250 ML IV PRN ×2 (00:48→10:41)
[2022-02-28] MEDS: furosemide 20 MG/2 ML vial IV SCH ×4 (01:19→19:41)
[2022-02-28] MEDS: POTASSIUM BICARB 20meq eff tab 20 MEQ TABLET.EFF NG SCH ×4 (01:19→19:42)
[2022-02-28] MEDS: acetaminophen 325mg/10.15ml oral unit dose solution NG PRN ×3 (01:19→16:33)
[2022-02-28] MEDS: propofol 1000mg/100ml bottle 100 ML IV SCH ×4 (01:33→11:44)
[2022-02-28] MEDS: insulin regular, human U-100 3ml vial - multi-dose SQ SCH ×5 (02:00→20:20)
--- NOTE | 2022-02-28 02:10 | NUR ---
PATIENT RUNNING FEVER MEDICATED WITH TYLENOL AND COOLING BLANKET WILL CONTIUE TO MONITOR
[2022-02-28 02:41] LABS: BASOPHILS # (AUTO) 0.1 X10'3 (0-0.2); EOSINOPHILS # (AUTO) 0.1 X10'3 (0-0.9); HEMOGLOBIN 9.4 g/dl (14.0-17.9); LYMPHOCYTES # (AUTO) 1.5 X10'3 (1.1-4.8); LYMPHOCYTES % (AUTO) 21.4 % (21-51); MEAN PLATELET VOLUME 9.6 FL (7.4-10.4); MONOCYTES # (AUTO) 0.8 X10'3 (0-0.9); MONOCYTES % (AUTO) 11.4 % (2-12); NEUTROPHILS # (AUTO) 4.7 X10'3 (1.8-7.7); NEUTROPHILS % (AUTO) 65.2 % (42-75); PLATELET COUNT 171 X10'3 (140-440); WHITE BLOOD COUNT 7.2 X10'3 (4.5-11.0)
[2022-02-28 02:59] LABS: ALANINE AMINOTRANSFERASE 28 U/L (12-78); ALBUMIN 1.9 G/DL (3.4-5.0); ALBUMIN/GLOBULIN RATIO 0.4 (1.1-1.5); ALKALINE PHOSPHATASE 154 IU/L (46-116); ANION GAP 9 (8-16); BILIRUBIN,TOTAL 0.8 MG/DL (0.1-1.0); BLOOD UREA NITROGEN 25 MG/DL (7-18); BUN/CREATININE RATIO 22.3 (5.4-32.0); CALCIUM 7.4 MG/DL (8.5-10.1); CHLORIDE 103 MMOL/L (99-107); CREATININE 1.12 MG/DL (0.60-1.10); MAGNESIUM 1.8 MG/DL (1.5-2.4); SODIUM 138 MMOL/L (135-145); TOTAL CARBON DIOXIDE 26.5 MMOL/L (24-32); TOTAL PROTEIN 6.3 G/DL (6.4-8.2); eGFR 70 ML/MIN
[2022-02-28 03:00] LABS: ASPARTATE AMINO TRANSFERASE 50 U/L (10-37); GLUCOSE 160 MG/DL (70-104); POTASSIUM 3.3 MMOL/L (3.5-5.1)
[2022-02-28] MEDS: potassium Cl 20mEq/100mL bag 100 ML IV PRN ×2 (03:19→04:13)
[2022-02-28 03:26] LABS: MEAN CORPUSCULAR HEMOGLOBIN 36.3 PG (27.0-31.0); MEAN CORPUSCULAR VOLUME 100.6 FL (78-98); RED BLOOD COUNT 2.59 X10'6 (4.70-6.10)
[2022-02-28 03:27] LABS: MEAN CORPUSCULAR HGB CONC 36.1 g/dL (33.0-36.5); RED CELL DISTRIBUTION WIDTH 14.1 % (11.5-14.5)
[2022-02-28 03:40] LABS: ABG BASE EXCESS 4.8 mmol/L (-2.0-2.0); ABG HCO3 26.9 mmol/L (22.0-26.0); ABG OXYGEN SATURATION 97.8 % (94-97); ABG PCO2 (T) 32.3 mmHg (35.0-48.0); ABG PO2 (T) 107.9 mmHg (75.0-100.0); ALLEN'S TEST Modified; FCOHb 0.2 % (0.0-3.9); FMetHb 0.1 % (0.0-1.5); FO2Hb 97.5 % (94-97); PEEP 8 cm H2O; RESPIRATORY RATE 14 b/min; TIDAL VOLUME 550 mL; TOTAL HEMOGLOBIN 9.9 G/dl (14.0-17.9)
[2022-02-28] MEDS ORDERED: sevoflurane 250ml liquid IH ONE (06:25)
--- NOTE | 2022-02-28 06:30 | NUR ---
Patient taken to OR. at bedside
--- NOTE | 2022-02-28 06:44 | NUR ---
Patient in room CICU 2014. I have received report from Tiffanie WOODRUFF and had the opportunity to ask questions and assume patient care.
[2022-02-28] MEDS ORDERED: naloxone 0.4 mg/ml inj IV PRN (07:25)
[2022-02-28] MEDS: NORepinephrine 8mg/ 250ml NS 250 ML IV SCH ×2 (07:46→18:35)
[2022-02-28] MEDS: MULTIVIT-MIN/FERROUS GLUCONATE 9 MG/15 ML LIQUID NG SCH (08:00)
[2022-02-28] MEDS ORDERED: fluconazole/NS 400mg/200ml bag 200 ML IV SCH (08:00)
[2022-02-28] MEDS: insulin glargine (Lantus) pen - multi-dose SQ SCH (08:00)
[2022-02-28] MEDS: nystatin 15 GM powder TP SCH ×3 (08:00→20:22)
[2022-02-28] MEDS: heparin, porcine 5000 units/ml vial SQ SCH ×4 (08:00→23:35)
[2022-02-28] MEDS: cefepime 2g/NS 100ml ADVANTAGE 100 ML IV SCH ×3 (08:14→23:35)
[2022-02-28] MEDS: pantoprazole 40MG/NS 100ML BAG 100 ML IV SCH ×2 (08:14→19:42)
[2022-02-28] MEDS: thiamine 100mg/ml 2ml inj. IV SCH ×2 (08:14→19:41)
[2022-02-28] MEDS: folic acid 1mg/0.2ml inj IV SCH (08:17)
[2022-02-28] MEDS: clindamycin-Cleocin 900mg/D5W 50 ML IV SCH ×3 (09:43→23:35)
[2022-02-28] MEDS: fluconazole/NS 400mg/200ml bag 200 ML IV SCH (09:45)
[2022-02-28] MEDS ORDERED: linezolid 600mg/300ml PREMIX 300 ML IV SCH (11:17)
--- NOTE | 2022-02-28 12:15 | NUR ---
Patient shivering, temp 39.4, cooling blankets placed on patient. MD called regarding shivering. MD stated to keep cooling pt, MD stated to not give Demerol.
--- NOTE | 2022-02-28 13:27 | NUR ---
Reassessment: Pt s/p debridement with wound VAC placed this morning per EMR. Pt remains intubated however TF held d/t hopeful extubation today. RN states she will leave NGT in place if pt is extubated so pt can resume TF until passes swallow eval and able to tolerate adequate PO intake. Will place updated recommendations below for if pt is extubated. MD is agreeable to Norman BID to assist with wound healing once TF to resume. Propofol visualized at bedside to be running at 29.26 mL/hr providing 772 kcal/day though sedation now on hold for possible extubation. LBM 02/27 with 300 mL stool out per I&O. Will continue to follow closely. Recommendations: 1) Given Propofol at 29.26 ml/hr providing additional 772 kcal/day; Vital High Protein at 55 ml/hr to provide 1320 ml volume, 1320 kcal, 1104 ml water, and 115 g protein 2) IF Propofol off; advance Vital HP to 85 mL/hr goal to provide 2040 mL total volume/day, 2040 kcal, 178 g protein, and 1705 mL water. 3) IF PT EXTUBATED continuous Vital AF with 80 mL/hr goal via NGT; CONTINUE NGTF UNTIL DIET IS ADVANCED AND PT WITH ADEQUATE PO INTAKE 4) Monitor serum Na for water flush recommendations; okay with 180 mL BID for Norman administration once TF to be resumed 5) Monitor Propofol rate and need to adjust TF recs 6) Routine bowel regimen per physician discretion 7) PALB q Saturday/; Daily scaled wts 8) Continue routine Thiamine, Folic acid, and MVM with iron d/t EtOH hx 9) Advance to low fiber CHO controlled diet as medically indicated following extubation 10) DM diet ed once appropriate following extubation and official DM dx by physician; A1c 10.1% with no PMH DM ( aware). Colostomy diet ed as well Addendum: 02/28/22 at [address] Amended: Links added.
--- NOTE | 2022-02-28 14:18 | NUR ---
Coughing Pt with repeated, almost constant cough. Suctioned endotracheal as well as oral. at bedside.
[2022-02-28] MEDS: DAPTOmycin inj. 700 MG in normal saline 100ml IV soln 100 ML IV SCH (14:43)
[2022-02-28] MEDS: HYDROmorphone 1 mg/ml syringe IV PRN ×2 (17:14→21:14)
--- NOTE | 2022-02-28 18:22 | NUR ---
Problems reprioritized. Patient report given, questions answered & plan of care reviewed with Kimberly WOODRUFF.
[2022-03-01] VITALS (23 sets, daily range): BP systolic 85–122; BP diastolic 44–64
[2022-03-01] MEDS: furosemide 20 MG/2 ML vial IV SCH ×4 (02:02→21:45)
[2022-03-01] MEDS: POTASSIUM BICARB 20meq eff tab 20 MEQ TABLET.EFF NG SCH ×4 (02:02→21:46)
[2022-03-01] MEDS: insulin regular, human U-100 3ml vial - multi-dose SQ SCH ×4 (02:02→22:18)
[2022-03-01 02:24] LABS: BASOPHILS % (AUTO) 0.7 % (0-1); EOSINOPHILS # (AUTO) 0.1 X10'3 (0-0.9); EOSINOPHILS % (AUTO) 1.6 % (0-6); HEMATOCRIT 25.6 % (42.0-52.0); HEMOGLOBIN 8.7 g/dl (14.0-17.9); LYMPHOCYTES # (AUTO) 1.5 X10'3 (1.1-4.8); LYMPHOCYTES % (AUTO) 21.6 % (21-51); MEAN CORPUSCULAR HEMOGLOBIN 34.1 PG (27.0-31.0); MEAN CORPUSCULAR HGB CONC 33.9 g/dL (33.0-36.5); MEAN CORPUSCULAR VOLUME 100.6 FL (78-98); MEAN PLATELET VOLUME 8.9 FL (7.4-10.4); MONOCYTES # (AUTO) 0.8 X10'3 (0-0.9); MONOCYTES % (AUTO) 11.5 % (2-12); NEUTROPHILS # (AUTO) 4.4 X10'3 (1.8-7.7); NEUTROPHILS % (AUTO) 64.6 % (42-75); PLATELET COUNT 187 X10'3 (140-440); RED BLOOD COUNT 2.55 X10'6 (4.70-6.10); RED CELL DISTRIBUTION WIDTH 14.4 % (11.5-14.5); WHITE BLOOD COUNT 6.9 X10'3 (4.5-11.0)
[2022-03-01 02:40] LABS: ALANINE AMINOTRANSFERASE 28 U/L (12-78); ALBUMIN/GLOBULIN RATIO 0.4 (1.1-1.5); ALKALINE PHOSPHATASE 149 IU/L (46-116); ANION GAP 7 (8-16); ASPARTATE AMINO TRANSFERASE 38 U/L (10-37); BILIRUBIN,TOTAL 0.8 MG/DL (0.1-1.0); BLOOD UREA NITROGEN 22 MG/DL (7-18); BUN/CREATININE RATIO 23.9 (5.4-32.0); CALCIUM 8.1 MG/DL (8.5-10.1); CHLORIDE 106 MMOL/L (99-107); CREATININE 0.92 MG/DL (0.60-1.10); GLUCOSE 184 MG/DL (70-104); MAGNESIUM 1.8 MG/DL (1.5-2.4); POTASSIUM 3.2 MMOL/L (3.5-5.1); SODIUM 142 MMOL/L (135-145); TOTAL CARBON DIOXIDE 28.9 MMOL/L (24-32); TOTAL PROTEIN 6.5 G/DL (6.4-8.2); eGFR 88 ML/MIN
[2022-03-01] MEDS: potassium Cl 20mEq/100mL bag 100 ML IV PRN ×2 (02:59→04:03)
[2022-03-01] MEDS: HYDROmorphone 1 mg/ml syringe IV PRN ×3 (04:07→19:15)
[2022-03-01] MEDS: NORepinephrine 8mg/ 250ml NS 250 ML IV SCH (04:07)
[2022-03-01] MEDS: heparin, porcine 5000 units/ml vial SQ SCH ×2 (08:00→16:41)
[2022-03-01] MEDS: DAPTOmycin inj. 700 MG in normal saline 100ml IV soln 100 ML IV SCH (08:03)
[2022-03-01] MEDS: pantoprazole 40MG/NS 100ML BAG 100 ML IV SCH ×2 (08:03→21:46)
[2022-03-01] MEDS: clindamycin-Cleocin 900mg/D5W 50 ML IV SCH ×2 (08:04→16:40)
[2022-03-01] MEDS: cefepime 2g/NS 100ml ADVANTAGE 100 ML IV SCH ×2 (08:04→16:40)
[2022-03-01] MEDS: folic acid 1mg/0.2ml inj IV SCH (08:04)
[2022-03-01] MEDS: fluconazole/NS 400mg/200ml bag 200 ML IV SCH (08:04)
[2022-03-01] MEDS: nystatin 15 GM powder TP SCH ×3 (08:05→21:00)
[2022-03-01] MEDS: MULTIVIT-MIN/FERROUS GLUCONATE 9 MG/15 ML LIQUID NG SCH (08:05)
[2022-03-01] MEDS: thiamine 100mg/ml 2ml inj. IV SCH ×2 (08:05→21:45)
[2022-03-01] MEDS: insulin glargine (Lantus) pen - multi-dose SQ SCH (08:25)
[2022-03-01 17:18] LABS: ANION GAP 1 (8-16); BLOOD UREA NITROGEN 25 MG/DL (7-18); BUN/CREATININE RATIO 25.3 (5.4-32.0); CHLORIDE 107 MMOL/L (99-107); CREATININE 0.99 MG/DL (0.60-1.10); GLUCOSE 166 MG/DL (70-104); POTASSIUM 3.4 MMOL/L (3.5-5.1); SODIUM 141 MMOL/L (135-145); TOTAL CARBON DIOXIDE 32.9 MMOL/L (24-32); eGFR 81 ML/MIN
[2022-03-02] VITALS (22 sets, daily range): BP systolic 16–117; BP diastolic 47–70
[2022-03-02] MEDS: HYDROmorphone 1 mg/ml syringe IV PRN ×5 (00:22→23:31)
[2022-03-02] MEDS: clindamycin-Cleocin 900mg/D5W 50 ML IV SCH ×4 (00:22→23:31)
[2022-03-02] MEDS: heparin, porcine 5000 units/ml vial SQ SCH ×4 (00:22→23:30)
[2022-03-02] MEDS: cefepime 2g/NS 100ml ADVANTAGE 100 ML IV SCH ×4 (00:23→23:31)
[2022-03-02] MEDS: NORepinephrine 8mg/ 250ml NS 250 ML IV SCH ×2 (00:50→21:00)
[2022-03-02] MEDS: insulin regular, human U-100 3ml vial - multi-dose SQ SCH ×4 (02:00→20:00)
[2022-03-02] MEDS: furosemide 20 MG/2 ML vial IV SCH ×4 (02:52→20:05)
[2022-03-02] MEDS: POTASSIUM BICARB 20meq eff tab 20 MEQ TABLET.EFF NG SCH ×4 (02:52→20:06)
[2022-03-02 03:07] LABS: BASOPHILS # (AUTO) 0.1 X10'3 (0-0.2); BASOPHILS % (AUTO) 1.2 % (0-1); EOSINOPHILS # (AUTO) 0.1 X10'3 (0-0.9); EOSINOPHILS % (AUTO) 2.6 % (0-6); HEMATOCRIT 26.3 % (42.0-52.0); HEMOGLOBIN 8.8 g/dl (14.0-17.9); LYMPHOCYTES # (AUTO) 1.3 X10'3 (1.1-4.8); LYMPHOCYTES % (AUTO) 26.7 % (21-51); MEAN CORPUSCULAR HEMOGLOBIN 33.8 PG (27.0-31.0); MEAN CORPUSCULAR HGB CONC 33.4 g/dL (33.0-36.5); MEAN PLATELET VOLUME 8.4 FL (7.4-10.4); MONOCYTES # (AUTO) 0.5 X10'3 (0-0.9); MONOCYTES % (AUTO) 10.5 % (2-12); NEUTROPHILS # (AUTO) 2.8 X10'3 (1.8-7.7); PLATELET COUNT 195 X10'3 (140-440); RED CELL DISTRIBUTION WIDTH 14.1 % (11.5-14.5); WHITE BLOOD COUNT 4.7 X10'3 (4.5-11.0)
[2022-03-02 03:22] LABS: ALANINE AMINOTRANSFERASE 25 U/L (12-78); ALBUMIN/GLOBULIN RATIO 0.4 (1.1-1.5); ALKALINE PHOSPHATASE 130 IU/L (46-116); ANION GAP 6 (8-16); ASPARTATE AMINO TRANSFERASE 33 U/L (10-37); BILIRUBIN,TOTAL 0.6 MG/DL (0.1-1.0); BLOOD UREA NITROGEN 22 MG/DL (7-18); BUN/CREATININE RATIO 25.6 (5.4-32.0); CALCIUM 8.7 MG/DL (8.5-10.1); CHLORIDE 108 MMOL/L (99-107); CREATININE 0.86 MG/DL (0.60-1.10); GLUCOSE 137 MG/DL (70-104); MAGNESIUM 2.1 MG/DL (1.5-2.4); PHOSPHORUS 3.1 MG/DL (2.3-4.5); POTASSIUM 3.5 MMOL/L (3.5-5.1); SODIUM 144 MMOL/L (135-145); TOTAL CARBON DIOXIDE 29.9 MMOL/L (24-32); TOTAL PROTEIN 6.7 G/DL (6.4-8.2); TRIGLYCERIDES 177 MG/DL (20-135); eGFR > 90 ML/MIN
[2022-03-02] MEDS: fluconazole/NS 400mg/200ml bag 200 ML IV SCH (07:50)
[2022-03-02] MEDS: pantoprazole 40MG/NS 100ML BAG 100 ML IV SCH ×2 (07:50→20:06)
[2022-03-02] MEDS: folic acid 1mg/0.2ml inj IV SCH (07:51)
[2022-03-02] MEDS: DAPTOmycin inj. 700 MG in normal saline 100ml IV soln 100 ML IV SCH (07:51)
[2022-03-02] MEDS: thiamine 100mg/ml 2ml inj. IV SCH ×2 (07:52→20:05)
[2022-03-02] MEDS: MULTIVIT-MIN/FERROUS GLUCONATE 9 MG/15 ML LIQUID NG SCH (07:52)
[2022-03-02] MEDS: nystatin 15 GM powder TP SCH ×3 (07:53→23:31)
[2022-03-02] MEDS: insulin glargine (Lantus) pen - multi-dose SQ SCH (08:19)
[2022-03-02] MEDS ORDERED: sevoflurane 250ml liquid IH ONE (16:23)
[2022-03-02] MEDS ORDERED: midazolam 1 mg/ML 2ml injection ONE (16:24)
[2022-03-02] MEDS ORDERED: fentaNYL /PF 50mcg/ml 5ml ampule ONE (16:25)
[2022-03-02] MEDS ORDERED: propofol inj 20 ML IV ONE (17:31)
[2022-03-02] MEDS ORDERED: rocuronium 10mg/ml inj IV ONE (17:31)
[2022-03-02] MEDS ORDERED: sugammadex 200mg/2ml injection IV ONE (17:41)
[2022-03-03] VITALS (15 sets, daily range): BP systolic 99–119; BP diastolic 45–89
[2022-03-03] MEDS: POTASSIUM BICARB 20meq eff tab 20 MEQ TABLET.EFF NG SCH ×3 (02:00→15:42)
[2022-03-03] MEDS: furosemide 20 MG/2 ML vial IV SCH ×4 (02:00→21:22)
[2022-03-03] MEDS: insulin regular, human U-100 3ml vial - multi-dose SQ SCH (02:00)
[2022-03-03 02:55] LABS: BASOPHILS % (AUTO) 0.7 % (0-1); EOSINOPHILS # (AUTO) 0.2 X10'3 (0-0.9); EOSINOPHILS % (AUTO) 3.4 % (0-6); HEMATOCRIT 29.4 % (42.0-52.0); HEMOGLOBIN 9.8 g/dl (14.0-17.9); LYMPHOCYTES # (AUTO) 1.7 X10'3 (1.1-4.8); LYMPHOCYTES % (AUTO) 28.7 % (21-51); MEAN CORPUSCULAR HEMOGLOBIN 33.9 PG (27.0-31.0); MEAN CORPUSCULAR HGB CONC 33.5 g/dL (33.0-36.5); MEAN CORPUSCULAR VOLUME 101.3 FL (78-98); MEAN PLATELET VOLUME 8.7 FL (7.4-10.4); MONOCYTES # (AUTO) 0.5 X10'3 (0-0.9); MONOCYTES % (AUTO) 8.8 % (2-12); NEUTROPHILS # (AUTO) 3.4 X10'3 (1.8-7.7); NEUTROPHILS % (AUTO) 58.4 % (42-75); PLATELET COUNT 207 X10'3 (140-440); RED CELL DISTRIBUTION WIDTH 14.4 % (11.5-14.5); WHITE BLOOD COUNT 5.8 X10'3 (4.5-11.0)
[2022-03-03 03:13] LABS: ALANINE AMINOTRANSFERASE 26 U/L (12-78); ALBUMIN 2.1 G/DL (3.4-5.0); ALBUMIN/GLOBULIN RATIO 0.4 (1.1-1.5); ALKALINE PHOSPHATASE 129 IU/L (46-116); ANION GAP 8 (8-16); ASPARTATE AMINO TRANSFERASE 37 U/L (10-37); BILIRUBIN,TOTAL 0.6 MG/DL (0.1-1.0); BLOOD UREA NITROGEN 21 MG/DL (7-18); BUN/CREATININE RATIO 21.2 (5.4-32.0); CALCIUM 8.7 MG/DL (8.5-10.1); CHLORIDE 109 MMOL/L (99-107); CREATININE 0.99 MG/DL (0.60-1.10); GLUCOSE 111 MG/DL (70-104); MAGNESIUM 1.9 MG/DL (1.5-2.4); PHOSPHORUS 4.4 MG/DL (2.3-4.5); POTASSIUM 3.9 MMOL/L (3.5-5.1); SODIUM 143 MMOL/L (135-145); TOTAL CARBON DIOXIDE 26.4 MMOL/L (24-32); TOTAL PROTEIN 7.1 G/DL (6.4-8.2); eGFR 81 ML/MIN
[2022-03-03] MEDS: HYDROmorphone 1 mg/ml syringe IV PRN ×2 (04:14→08:52)
[2022-03-03] MEDS ORDERED: insulin Lispro (HumaLOG) vial - multi-dose SQ SCH (06:10)
--- NOTE | 2022-03-03 07:01 | NUR ---
I received report from RANJAN Berry. Pt is resting in no apparent distress. Vitals are stable and will continue to monitor.
[2022-03-03] MEDS: NORepinephrine 8mg/ 250ml NS 250 ML IV SCH (07:05)
[2022-03-03] MEDS: insulin glargine (Lantus) pen - multi-dose SQ SCH (08:00)
[2022-03-03] MEDS: folic acid 1mg/0.2ml inj IV SCH (08:00)
[2022-03-03] MEDS: cefepime 2g/NS 100ml ADVANTAGE 100 ML IV SCH ×2 (08:50→16:25)
[2022-03-03] MEDS: clindamycin-Cleocin 900mg/D5W 50 ML IV SCH ×2 (08:54→15:41)
[2022-03-03] MEDS: DAPTOmycin inj. 700 MG in normal saline 100ml IV soln 100 ML IV SCH (08:55)
[2022-03-03] MEDS: pantoprazole 40MG/NS 100ML BAG 100 ML IV SCH ×2 (08:55→21:21)
[2022-03-03] MEDS: MULTIVIT-MIN/FERROUS GLUCONATE 9 MG/15 ML LIQUID NG SCH (08:56)
[2022-03-03] MEDS: heparin, porcine 5000 units/ml vial SQ SCH ×2 (08:58→15:41)
[2022-03-03] MEDS: nystatin 15 GM powder TP SCH (08:58)
[2022-03-03] MEDS: thiamine 100mg/ml 2ml inj. IV SCH ×2 (09:07→20:00)
[2022-03-03] MEDS: fluconazole/NS 400mg/200ml bag 200 ML IV SCH (12:15)
--- NOTE | 2022-03-03 12:18 | NUR ---
Reassessment: Pt extubated 02/28. NGT was in place for pt to continue TF however noted it was discontinued. Per verbal d/w RN today it was reported by car shifter that NGT was to be removed d/t pt having an active PO diet. RN states patient's SO also indicated that patient's diet was progressing so NGT was to be pulled. Per RN pt was hesitant to have NGT removed stating he doesn't want to have to have it placed again. RD informed RN that NGT was to remain in place for supplemental nutrition as pt on an insufficient diet order with increased nutrient needs r/t wound healing. RD d/w bedside RN and universal grinder set up operator recommendation for diet advancement to low fiber as soon as cleared by physician so pt can receive more nutrition with meals, though aware that patient's diet may not get advanced for awhile d/t plans for returning back to OR for further I&D. RD discussed NGT being pulled with universal grinder set up operator as well as recommendation for Norman smoothie BID and Ensure Plus HP TID to optimize nutrient intake and assist with wound healing. LBM 03/02 documented with 350 mL stool output from colostomy per I&O. Will continue to follow. Recommendations: 1) Advance to low fiber CHO controlled diet as medically indicated 2) Ensure Plus HP TID and Norman smoothie BIDLD to optimize nutrient intake and assist with wound healing 3) Continue routine Thiamine, Folic acid, and MVM with iron d/t EtOH hx 4) Bowel care per rx 5) DM diet ed once appropriate following official DM dx by physician; A1c 10.1% with no PMH DM (MD aware); consider f/u A1c given well managed serum BS. Colostomy diet ed as well Addendum: 03/03/22 at [address] Amended: Links added.
--- NOTE | 2022-03-03 13:21 | NUR ---
I called the Rn for transfer at 1250, RN was in the middle of a transfer. I called back at 1301 and phone continued to ring
--- NOTE | 2022-03-03 13:40 | NUR ---
Report received from CICU RN, Esther
[2022-03-03] MEDS: LACTOSE-REDUCED FOOD 237ML LIQUID PO SCH ×2 (14:20→18:00)
[2022-03-03] MEDS: JUVEN Smoothie Arginine/Glut./Ca2+Bmb (Juven 19.3pkt) 240ml cup PO SCH (17:30)
--- NOTE | 2022-03-03 18:40 | NUR ---
Problems reprioritized. Patient report given, questions answered & plan of care reviewed with RANJAN Goldstein.
[2022-03-04] MEDS: cefepime 2g/NS 100ml ADVANTAGE 100 ML IV SCH ×3 (00:23→20:56)
[2022-03-04] MEDS: heparin, porcine 5000 units/ml vial SQ SCH ×4 (00:23→23:41)
[2022-03-04] MEDS: clindamycin-Cleocin 900mg/D5W 50 ML IV SCH ×4 (00:44→23:55)
[2022-03-04 05:29] LABS: BASOPHILS % (AUTO) 0.9 % (0-1); EOSINOPHILS # (AUTO) 0.3 X10'3 (0-0.9); EOSINOPHILS % (AUTO) 5.3 % (0-6); HEMATOCRIT 27.2 % (42.0-52.0); LYMPHOCYTES # (AUTO) 1.5 X10'3 (1.1-4.8); LYMPHOCYTES % (AUTO) 31.9 % (21-51); MEAN CORPUSCULAR HEMOGLOBIN 33.3 PG (27.0-31.0); MEAN CORPUSCULAR HGB CONC 33.2 g/dL (33.0-36.5); MEAN CORPUSCULAR VOLUME 100.4 FL (78-98); MEAN PLATELET VOLUME 8.4 FL (7.4-10.4); MONOCYTES # (AUTO) 0.5 X10'3 (0-0.9); MONOCYTES % (AUTO) 10.4 % (2-12); NEUTROPHILS # (AUTO) 2.5 X10'3 (1.8-7.7); NEUTROPHILS % (AUTO) 51.5 % (42-75); PLATELET COUNT 197 X10'3 (140-440); RED BLOOD COUNT 2.71 X10'6 (4.70-6.10); RED CELL DISTRIBUTION WIDTH 13.8 % (11.5-14.5); WHITE BLOOD COUNT 4.8 X10'3 (4.5-11.0)
[2022-03-04 05:53] LABS: ALANINE AMINOTRANSFERASE 28 U/L (12-78); ALBUMIN 2.2 G/DL (3.4-5.0); ALBUMIN/GLOBULIN RATIO 0.4 (1.1-1.5); ALKALINE PHOSPHATASE 132 IU/L (46-116); ANION GAP 4 (8-16); ASPARTATE AMINO TRANSFERASE 43 U/L (10-37); BILIRUBIN,TOTAL 0.6 MG/DL (0.1-1.0); BLOOD UREA NITROGEN 19 MG/DL (7-18); BUN/CREATININE RATIO 16.8 (5.4-32.0); CALCIUM 8.5 MG/DL (8.5-10.1); CHLORIDE 105 MMOL/L (99-107); CREATININE 1.13 MG/DL (0.60-1.10); GLUCOSE 110 MG/DL (70-104); MAGNESIUM 2.2 MG/DL (1.5-2.4); PHOSPHORUS 4.4 MG/DL (2.3-4.5); POTASSIUM 3.6 MMOL/L (3.5-5.1); SODIUM 137 MMOL/L (135-145); TOTAL CARBON DIOXIDE 27.7 MMOL/L (24-32); TOTAL PROTEIN 7.3 G/DL (6.4-8.2); eGFR 70 ML/MIN
[2022-03-04 06:00] VITALS: BP 108/62
--- NOTE | 2022-03-04 06:44 | NUR ---
Patient in room [facility] 340. I have received report from Angelita WOODRUFF and had the opportunity to ask questions and assume patient care.
[2022-03-04] MEDS: JUVEN Smoothie Arginine/Glut./Ca2+Bmb (Juven 19.3pkt) 240ml cup PO SCH ×2 (07:30→17:30)
[2022-03-04] MEDS: LACTOSE-REDUCED FOOD 237ML LIQUID PO SCH ×3 (08:00→18:45)
[2022-03-04] MEDS: pantoprazole 40MG/NS 100ML BAG 100 ML IV SCH ×2 (09:25→20:10)
[2022-03-04] MEDS: MULTIVIT-MIN/FERROUS GLUCONATE 9 MG/15 ML LIQUID NG SCH (09:25)
[2022-03-04] MEDS: furosemide 20 MG/2 ML vial IV SCH ×2 (09:26→20:09)
[2022-03-04] MEDS: fluconazole/NS 400mg/200ml bag 200 ML IV SCH (09:26)
[2022-03-04] MEDS: thiamine 100mg/ml 2ml inj. IV SCH ×2 (09:26→20:20)
[2022-03-04] MEDS: insulin glargine (Lantus) pen - multi-dose SQ SCH (09:30)
[2022-03-04 11:00] VITALS: BP 105/56
[2022-03-04] MEDS: DAPTOmycin inj. 700 MG in normal saline 100ml IV soln 100 ML IV SCH (14:21)
[2022-03-04] MEDS: folic acid 1mg/0.2ml inj IV SCH (14:21)
--- NOTE | 2022-03-04 18:29 | NUR ---
Problems reprioritized. Patient report given, questions answered & plan of care reviewed with CARMEN WOODRUFF.
[2022-03-04 18:30] VITALS: BP 102/58
[2022-03-04 22:30] VITALS: BP 109/58
[2022-03-05] VITALS (20 sets, daily range): BP systolic 100–162; BP diastolic 54–80
--- NOTE | 2022-03-05 06:33 | NUR ---
Problems reprioritized. Patient report given, questions answered & plan of care reviewed with TIMOTHY. Addendum: 03/05/22 at 0633 by Mark Grossman RN Amended: Links added.
--- NOTE | 2022-03-05 07:09 | NUR ---
Patient in room [facility]. I have received report from CARMEN WOODRUFF and had the opportunity to ask questions and assume patient care.
--- NOTE | 2022-03-05 07:19 | NUR ---
Message: Carmela Surg [id number] Re: [facility] 340S please call patient going to OR this am to replace wound vac Blood glucose 107 and NPO can I hold patient 60 units of Lantus? Custom Responses: promotional table spacer Transaction number: [id number] Addendum: 03/05/22 at 0720 by Carmela Alvarez RN Per Dr Thomas hold patient am Lantus
[2022-03-05] MEDS: heparin, porcine 5000 units/ml vial SQ SCH ×3 (07:21→23:51)
[2022-03-05] MEDS: insulin glargine (Lantus) pen - multi-dose SQ SCH ×2 (07:21→21:30)
[2022-03-05] MEDS: JUVEN Smoothie Arginine/Glut./Ca2+Bmb (Juven 19.3pkt) 240ml cup PO SCH ×2 (07:30→18:10)
[2022-03-05] MEDS: pantoprazole 40MG/NS 100ML BAG 100 ML IV SCH ×2 (07:47→20:04)
[2022-03-05] MEDS: cefepime 2g/NS 100ml ADVANTAGE 100 ML IV SCH ×2 (07:47→20:46)
[2022-03-05] MEDS: fluconazole/NS 400mg/200ml bag 200 ML IV SCH (08:00)
[2022-03-05] MEDS: clindamycin-Cleocin 900mg/D5W 50 ML IV SCH ×3 (08:00→23:50)
[2022-03-05] MEDS: LACTOSE-REDUCED FOOD 237ML LIQUID PO SCH ×3 (08:00→18:10)
--- NOTE | 2022-03-05 08:19 | NUR ---
Problems reprioritized. Patient report given, questions answered & plan of care reviewed with Kavon WOODRUFF in Recovery room.
[2022-03-05] MEDS ORDERED: sevoflurane 250ml liquid IH ONE (08:40)
[2022-03-05] MEDS ORDERED: fentaNYL/PF 50MCG/1 ML 2ML syringe ONE ×2 (08:40→08:52)
[2022-03-05] MEDS ORDERED: midazolam 1 mg/ML 2ml injection ONE (08:41)
[2022-03-05] MEDS ORDERED: sugammadex 200mg/2ml injection IV ONE (09:30)
[2022-03-05] MEDS ORDERED: propofol inj 20 ML IV ONE (09:33)
[2022-03-05] MEDS ORDERED: ondansetron/PF 4mg/2ml inj ONE (09:33)
[2022-03-05] MEDS ORDERED: rocuronium 10mg/ml inj IV ONE (09:33)
[2022-03-05] MEDS ORDERED: LIDOcaine 2% (20mg/ml) 5ml vial ONE (09:33)
[2022-03-05] MEDS ORDERED: dexamethasone sod phosphate 4mg/ml inj. ONE (09:33)
--- NOTE | 2022-03-05 09:43 | NUR ---
Received from OR via [facility] BED , accompanied by Anesthesiologist DR MARRERO and report given by Anesthesiolgist. PT PRESENTS WITH EXTENDED IV RIGHT UPPER ARM, WOUND VAC COVERING GROIN, 125MMHG, GALVEZ CATHETER, VSS. Addendum: 03/05/22 at 1012 by Radha Tyler RN, RN Amended: Links added.
[2022-03-05] MEDS ORDERED: meperidine/PF 25mg/ml syringe IV PRN ×3 (09:50)
[2022-03-05] MEDS ORDERED: proCHLORperazine 10 MG/2 ml inj IV PRN (09:50)
[2022-03-05] MEDS ORDERED: ondansetron/PF 4mg/2ml inj IV PRN (09:50)
[2022-03-05] MEDS ORDERED: morphine 4 MG/ML inj SYRINge IV PRN (09:50)
[2022-03-05] MEDS ORDERED: ringers solution, lacted 1,000 ML IV SCH (09:50)
[2022-03-05] MEDS ORDERED: morphine 2 MG/ML inj. syringe IV PRN (09:50)
[2022-03-05] MEDS ORDERED: meperidine/PF 25mg/ml syringe ONE (09:55)
--- NOTE | 2022-03-05 10:53 | NUR ---
Report called to receiving nurse TIMOTHY WOODRUFF. Transferred via [facility] B[facility] TO ROOM 340. BED IN LOW LOCKED POSTION WITH CALL LIGHT IN REACH, BED, WOIND VAC AND SCD'S PLUGGED IN. CHART GIVEN TO RN. Belongings WERE LEFT IN PT ROOM EXCEPT PT GLASSES IN CHART. Special Issues communicated to receiving nurse. Addendum: 03/05/22 at 1107 by Radha Tyler RN RN Amended: Links added.
[2022-03-05] MEDS: folic acid 1mg/0.2ml inj IV SCH (11:44)
[2022-03-05] MEDS: furosemide 20 MG/2 ML vial IV SCH ×2 (11:45→20:04)
[2022-03-05] MEDS: DAPTOmycin inj. 700 MG in normal saline 100ml IV soln 100 ML IV SCH (11:45)
[2022-03-05] MEDS: MULTIVIT-MIN/FERROUS GLUCONATE 9 MG/15 ML LIQUID NG SCH (11:45)
[2022-03-05] MEDS: normal saline 500ml IV soln 500 ML IV SCH (11:46)
--- NOTE | 2022-03-05 12:02 | NUR ---
Message: Carmela Surg [id number] Re: 340B [facility] can we change Thiamine , folic acid, MV to PO and can patient have PO pain medication Tramadol?
[2022-03-05] MEDS ORDERED: DEXTROSE 15 GM of carb/4 tabs (each vial/BOTTLE has 4 tablets) PO PRN ×2 (12:15)
[2022-03-05] MEDS ORDERED: glucagon, human recombinant 1mg kit SUBCUT PRN (12:15)
[2022-03-05] MEDS ORDERED: dextrose 50%-water 50ml dispensing syringe IV PRN ×2 (12:15)
[2022-03-05] MEDS: traMADol 50MG tablet PO PRN ×2 (12:32→23:59)
--- NOTE | 2022-03-05 18:10 | NUR ---
Problems reprioritized. Patient report given, questions answered & plan of care reviewed with Juan WOODRUFF.
[2022-03-05] MEDS: insulin Lispro (HumaLOG) vial - multi-dose SQ SCH (19:14)
[2022-03-05 22:39] LABS: BASOPHILS % (AUTO) 0.6 % (0-1); EOSINOPHILS % (AUTO) 0.7 % (0-6); HEMATOCRIT 28.7 % (42.0-52.0); HEMOGLOBIN 9.6 g/dl (14.0-17.9); LYMPHOCYTES # (AUTO) 1.4 X10'3 (1.1-4.8); LYMPHOCYTES % (AUTO) 21.4 % (21-51); MEAN CORPUSCULAR HEMOGLOBIN 33.8 PG (27.0-31.0); MEAN CORPUSCULAR HGB CONC 33.5 g/dL (33.0-36.5); MEAN CORPUSCULAR VOLUME 100.9 FL (78-98); MEAN PLATELET VOLUME 8.6 FL (7.4-10.4); MONOCYTES # (AUTO) 0.6 X10'3 (0-0.9); MONOCYTES % (AUTO) 9.6 % (2-12); NEUTROPHILS # (AUTO) 4.4 X10'3 (1.8-7.7); NEUTROPHILS % (AUTO) 67.7 % (42-75); PLATELET COUNT 201 X10'3 (140-440); RED BLOOD COUNT 2.84 X10'6 (4.70-6.10); RED CELL DISTRIBUTION WIDTH 14.3 % (11.5-14.5); WHITE BLOOD COUNT 6.5 X10'3 (4.5-11.0)
[2022-03-05 22:49] LABS: ALANINE AMINOTRANSFERASE 34 U/L (12-78); ALBUMIN 2.4 G/DL (3.4-5.0); ALBUMIN/GLOBULIN RATIO 0.5 (1.1-1.5); ALKALINE PHOSPHATASE 129 IU/L (46-116); ANION GAP 5 (8-16); ASPARTATE AMINO TRANSFERASE 48 U/L (10-37); BILIRUBIN,TOTAL 0.4 MG/DL (0.1-1.0); BLOOD UREA NITROGEN 28 MG/DL (7-18); BUN/CREATININE RATIO 24.8 (5.4-32.0); CALCIUM 8.7 MG/DL (8.5-10.1); CHLORIDE 102 MMOL/L (99-107); CREATININE 1.13 MG/DL (0.60-1.10); GLUCOSE 200 MG/DL (70-104); PHOSPHORUS 3.5 MG/DL (2.3-4.5); SODIUM 133 MMOL/L (135-145); TOTAL CARBON DIOXIDE 26.2 MMOL/L (24-32); TOTAL PROTEIN 7.7 G/DL (6.4-8.2); eGFR 70 ML/MIN
[2022-03-06 02:00] VITALS: BP 104/61
[2022-03-06 06:00] VITALS: BP 107/66
--- NOTE | 2022-03-06 06:28 | NUR ---
Problems reprioritized. Patient report given, questions answered & plan of care reviewed with TIMOTHY. Addendum: 03/06/22 at 0629 by Mark Grossman RN Amended: Links added.
[2022-03-06] MEDS: JUVEN Smoothie Arginine/Glut./Ca2+Bmb (Juven 19.3pkt) 240ml cup PO SCH ×2 (07:30→17:31)
[2022-03-06] MEDS: fluconazole 100mg tablet PO SCH (07:52)
[2022-03-06] MEDS: multivitamins, therapeutics tablet PO SCH (07:52)
[2022-03-06] MEDS: furosemide 20 MG/2 ML vial IV SCH ×2 (07:52→19:23)
[2022-03-06] MEDS: thiamine 100mg tablet PO SCH (07:53)
[2022-03-06] MEDS: normal saline 500ml IV soln 500 ML IV SCH (07:54)
[2022-03-06] MEDS: folic acid 1mg tablet PO SCH (07:54)
[2022-03-06] MEDS: pantoprazole 40MG/NS 100ML BAG 100 ML IV SCH ×2 (07:55→19:23)
[2022-03-06] MEDS: heparin, porcine 5000 units/ml vial SQ SCH ×2 (07:55→17:00)
[2022-03-06] MEDS: LACTOSE-REDUCED FOOD 237ML LIQUID PO SCH ×3 (08:00→18:25)
[2022-03-06] MEDS: clindamycin-Cleocin 900mg/D5W 50 ML IV SCH ×2 (08:08→16:57)
[2022-03-06] MEDS: insulin Lispro (HumaLOG) vial - multi-dose SQ SCH ×3 (10:04→19:35)
[2022-03-06] MEDS: cefepime 2g/NS 100ml ADVANTAGE 100 ML IV SCH ×2 (10:43→19:24)
[2022-03-06 11:00] VITALS: BP 104/59
[2022-03-06] MEDS: DAPTOmycin inj. 700 MG in normal saline 100ml IV soln 100 ML IV SCH (11:41)
--- NOTE | 2022-03-06 12:02 | NUR ---
F/u 03/06: Pt advanced to full liquids 03/01 until regular 03/04 WL and now carb controlled diet started WL yesterday per EMR. PO ~37% initial solids, ~89% Ensure Plus High Protein TIDWM, and 100% Norman smoothies BIDBD per EMR. Overall partially meeting estimated needs though most protein intake since admit. Colostomy -50ml past 24 hours w/ 350ml 03/04/-03/05 per EMR. Noted pt s/p I&D 03/05 AM and NPO tomorrow AM to return for wound vac change per RN today. RD d/w RN regarding addition of low-residue diet given s/p colostomy if MD agreeable. DM/Colostomy diet eds deferred until PO meals intake improves and pt more appropriate; forgetful today per EMR. Will continue to follow. Recommendations: 1) Advance to low fiber CHO controlled diet as medically indicated; encourage PO 2) Ensure Plus HP TID and Norman smoothie BIDLD to optimize nutrient intake and assist with wound healing 3) Continue routine Thiamine, Folic acid, and MVM with iron d/t EtOH hx 4) Bowel care per rx 5) DM diet ed once appropriate following official DM dx by physician; A1c 10.1% with no PMH DM (MD aware); consider f/u A1c given well managed serum BS. Colostomy diet ed as well Addendum: 03/06/22 at [address] Amended: Links added.
[2022-03-06] MEDS ORDERED: acetaminophen 325mg tablet PO PRN (16:40)
[2022-03-06] MEDS: acetaminophen 325mg tablet PO PRN (17:01)
[2022-03-06 17:29] LABS: BASOPHILS % (AUTO) 0.7 % (0-1); EOSINOPHILS # (AUTO) 0.4 X10'3 (0-0.9); EOSINOPHILS % (AUTO) 6.2 % (0-6); HEMATOCRIT 28.7 % (42.0-52.0); HEMOGLOBIN 9.8 g/dl (14.0-17.9); LYMPHOCYTES # (AUTO) 2.5 X10'3 (1.1-4.8); LYMPHOCYTES % (AUTO) 36.2 % (21-51); MEAN CORPUSCULAR HEMOGLOBIN 34.2 PG (27.0-31.0); MEAN CORPUSCULAR HGB CONC 34.2 g/dL (33.0-36.5); MEAN CORPUSCULAR VOLUME 100.1 FL (78-98); MEAN PLATELET VOLUME 8.7 FL (7.4-10.4); MONOCYTES # (AUTO) 0.7 X10'3 (0-0.9); MONOCYTES % (AUTO) 9.8 % (2-12); NEUTROPHILS # (AUTO) 3.2 X10'3 (1.8-7.7); NEUTROPHILS % (AUTO) 47.1 % (42-75); PLATELET COUNT 189 X10'3 (140-440); RED BLOOD COUNT 2.87 X10'6 (4.70-6.10); RED CELL DISTRIBUTION WIDTH 14.4 % (11.5-14.5); WHITE BLOOD COUNT 6.8 X10'3 (4.5-11.0)
[2022-03-06 17:46] LABS: ALANINE AMINOTRANSFERASE 38 U/L (12-78); ALBUMIN 2.4 G/DL (3.4-5.0); ALBUMIN/GLOBULIN RATIO 0.5 (1.1-1.5); ALKALINE PHOSPHATASE 121 IU/L (46-116); ANION GAP 6 (8-16); ASPARTATE AMINO TRANSFERASE 53 U/L (10-37); BILIRUBIN,TOTAL 0.4 MG/DL (0.1-1.0); BLOOD UREA NITROGEN 27 MG/DL (7-18); CALCIUM 8.1 MG/DL (8.5-10.1); CHLORIDE 104 MMOL/L (99-107); CREATININE 1.08 MG/DL (0.60-1.10); GLUCOSE 173 MG/DL (70-104); MAGNESIUM 2.1 MG/DL (1.5-2.4); PHOSPHORUS 3.5 MG/DL (2.3-4.5); POTASSIUM 3.5 MMOL/L (3.5-5.1); SODIUM 136 MMOL/L (135-145); TOTAL CARBON DIOXIDE 26.1 MMOL/L (24-32); TOTAL PROTEIN 7.2 G/DL (6.4-8.2); eGFR 73 ML/MIN
[2022-03-06 18:00] VITALS: BP 94/60
--- NOTE | 2022-03-06 18:10 | NUR ---
Patient in room [facility] 340. I have received report from RANJAN Casey and had the opportunity to ask questions and assume patient care.
--- NOTE | 2022-03-06 18:39 | NUR ---
Problems reprioritized. Patient report given, questions answered & plan of care reviewed with Nat WOODRUFF.
[2022-03-06] MEDS: insulin glargine (Lantus) pen - multi-dose SQ SCH (21:44)
[2022-03-06 22:00] VITALS: BP 96/55
[2022-03-07] VITALS (16 sets, daily range): BP systolic 106–136; BP diastolic 55–84
[2022-03-07] MEDS: clindamycin-Cleocin 900mg/D5W 50 ML IV SCH ×4 (00:24→23:31)
[2022-03-07] MEDS: heparin, porcine 5000 units/ml vial SQ SCH ×4 (00:26→23:31)
[2022-03-07] MEDS: acetaminophen 325mg tablet PO PRN (00:37)
[2022-03-07] MEDS: normal saline 500ml IV soln 500 ML IV SCH (05:19)
[2022-03-07 06:34] LABS: BASOPHILS % (AUTO) 0.7 % (0-1); EOSINOPHILS # (AUTO) 0.5 X10'3 (0-0.9); EOSINOPHILS % (AUTO) 8.8 % (0-6); HEMATOCRIT 29.2 % (42.0-52.0); HEMOGLOBIN 9.8 g/dl (14.0-17.9); LYMPHOCYTES # (AUTO) 2.1 X10'3 (1.1-4.8); LYMPHOCYTES % (AUTO) 40.6 % (21-51); MEAN CORPUSCULAR HEMOGLOBIN 33.7 PG (27.0-31.0); MEAN CORPUSCULAR HGB CONC 33.5 g/dL (33.0-36.5); MEAN CORPUSCULAR VOLUME 100.6 FL (78-98); MEAN PLATELET VOLUME 9.1 FL (7.4-10.4); MONOCYTES # (AUTO) 0.6 X10'3 (0-0.9); MONOCYTES % (AUTO) 10.8 % (2-12); NEUTROPHILS # (AUTO) 2.1 X10'3 (1.8-7.7); NEUTROPHILS % (AUTO) 39.1 % (42-75); PLATELET COUNT 172 X10'3 (140-440); RED BLOOD COUNT 2.91 X10'6 (4.70-6.10); RED CELL DISTRIBUTION WIDTH 14.6 % (11.5-14.5); WHITE BLOOD COUNT 5.3 X10'3 (4.5-11.0)
--- NOTE | 2022-03-07 06:36 | NUR ---
Problems reprioritized. Patient report given, questions answered & plan of care reviewed with RANJAN Casey.
[2022-03-07 06:48] LABS: ALANINE AMINOTRANSFERASE 49 U/L (12-78); ALBUMIN 2.5 G/DL (3.4-5.0); ALBUMIN/GLOBULIN RATIO 0.5 (1.1-1.5); ALKALINE PHOSPHATASE 128 IU/L (46-116); ANION GAP 3 (8-16); ASPARTATE AMINO TRANSFERASE 56 U/L (10-37); BILIRUBIN,TOTAL 0.4 MG/DL (0.1-1.0); BLOOD UREA NITROGEN 28 MG/DL (7-18); BUN/CREATININE RATIO 26.9 (5.4-32.0); CALCIUM 8.6 MG/DL (8.5-10.1); CHLORIDE 105 MMOL/L (99-107); CREATININE 1.04 MG/DL (0.60-1.10); GLUCOSE 117 MG/DL (70-104); POTASSIUM 3.5 MMOL/L (3.5-5.1); SODIUM 135 MMOL/L (135-145); TOTAL CARBON DIOXIDE 27.2 MMOL/L (24-32); TOTAL PROTEIN 7.3 G/DL (6.4-8.2); eGFR 77 ML/MIN
[2022-03-07] MEDS: JUVEN Smoothie Arginine/Glut./Ca2+Bmb (Juven 19.3pkt) 240ml cup PO SCH ×2 (07:30→17:30)
[2022-03-07] MEDS: LACTOSE-REDUCED FOOD 237ML LIQUID PO SCH ×3 (08:00→18:00)
[2022-03-07] MEDS: thiamine 100mg tablet PO SCH (09:02)
[2022-03-07] MEDS: multivitamins, therapeutics tablet PO SCH (09:03)
[2022-03-07] MEDS: fluconazole 100mg tablet PO SCH (09:04)
[2022-03-07] MEDS: folic acid 1mg tablet PO SCH (09:05)
[2022-03-07] MEDS: pantoprazole 40MG/NS 100ML BAG 100 ML IV SCH ×2 (09:08→19:59)
[2022-03-07] MEDS: furosemide 20 MG/2 ML vial IV SCH ×2 (09:08→19:59)
[2022-03-07] MEDS: cefepime 2g/NS 100ml ADVANTAGE 100 ML IV SCH ×2 (10:37→19:59)
[2022-03-07] MEDS: DAPTOmycin inj. 700 MG in normal saline 100ml IV soln 100 ML IV SCH (11:32)
--- NOTE | 2022-03-07 14:09 | NUR ---
OSTOMY FACTS: Almost everyone has know of, or met, businessmen, entertainers, athletes, and people from all walks of life who have an ostomy. Ostomates (a person that has an ostomy) can ski, ride horses, bowl, and get healthy exercise in countless ways. Your usual activities of daily living can be resumed as soon as you are able. Gradually you will be able to wear the clothes worn before surgery. With modern pouches, nothing is noticeable under your clothing. It may be difficult at first to believe that an intimate relationship can be possible when one's body has been disfigured by surgery. This is not true. Love, fortunately, is not easily destroyed when it is based on genuine appreciation of a person as a thinking, feeling, reacting human being. AN OSTOMY IS NOT AN IMPAIRMENT!! DEFINITIONS: 1.OSTOMY: An opening that is created by a surgical procedure. The opening is called a "stoma". 2.STOMA: A surgical opening in the abdomen (belly) where intestine is brought through the abdominal wall and connected at the skin level. A stoma is shiny, wet and at first is dark purple but eventually turns pink, similar to the inside lining of your mouth. 3.COLON: A portion of the large bowel. 4.COLOSTOMY: A fecal diversion with an opening, (stoma) created anywhere along the colon. Making a connection between the colon and the abdominal wall. 5.ILLEOSTOMY: A fecal diversion with an opening, (stoma) created in the small intestine. Making a connection between the small intestine and the abdominal wall. 6.UROSTOMY: A urinary diversion with the ureters connected to a segment of the small bowel and one end is brought out and connected to the abdominal wall, creating a stoma. SHAPES and SIZES: "The stoma is usually round or oval. "It is anywhere from a dime to half dollar in size. "A stoma reaches its permanent size 6-8 weeks after surgery. PRODUCTS: 1.POUCH or APPLIANCE: An external device to contain stool or urine output and protect the skin around the stoma. It can be a one piece pouch or two pieces (a pouch and a wafer). 2.BARRIER: Substance that is used to protect the skin around the stoma from drainage and adhesive. 3.SKIN PREP or SEALANT: Product applied to the skin to reduce injury from moisture, drainage, or repeated pouch removal. Available in spray or wipes. 4.CLOSURE or CLAMP: A device used to close the bottom of a drainable pouch. 5.BRIDGE or LUC: A piece of plastic placed under a loop of bowel on the skins surface, to secure the bowel in place while the skin heals. POUCH CHANGE PROCEEDURE: 1.Assemble all the supplies "1 or 2 piece appliance "Ostomy paste (if needed) "Ostomy powder (if needed) "Skin prep wipes ( not recommended with coloplast products) "Moist wash cloth or cotton balls 2.Remove plastic center and paper backing from pouch. If pouch or wafer is not precut, use the sizing guide, or plastic backing from pouch to make a pattern. Do this by placing the paper over the stoma and trace it, or draw a pattern. Cut the wafer to fit and set it aside. 3.Remove old pouch by lifting up on tape while pressing skin down away from the tape. If there is a clip on your pouch, remove it and save it. 4.Clean skin or stoma with moistened wash cloth or cotton balls. Place a clean cotton ball over stoma hole to catch any drainage. Let skin dry. 5.For grooves or uneven areas in the skin- apply ostomy paste and sprinkle with ostomy powder, then gently shape the past so the area around the stoma is smooth and as flat as possible. Wipe off or blow away excess. Blot powder with skin prep wipe (DO NOT wipe powder). Let dry until no longer sticky. 6.For irritated or reddened skin- sprinkle ostomy powder on red or irritated area. Wipe off or blow away excess. Blot powder with skin prep wipe (DO NOT wipe powder). Let dry until no longer sticky. 7.Apply skin prep wipe to skin to which the pouch and tape will adhere. Let dry until no longer sticky. 8.If you have a one piece appliance- apply pouch so it is centered around the stoma. No skin should be exposed to stool. All skin should be covered by paste or pouch. 9.If you have a two piece appliance- Apply the wafer as described above, then snap or stick pouch onto wafer. Check to make sure wafer and pouch are securely connected. 10.Place clip on bottom of pouch. 11.Empty pouch when 1/3 full. OSTOMY SKIN CARE: "Good health care and nutrition are essential for healthy skin. "Usually a correct pouch size will prevent skin breakdown. "Use warm water and soap for skin cleansing. "Do not use creams or oil based products on skin around the stoma. This will prevent the appliance from sticking. "Use skin prep around the stoma. IT CAN TAKE 24 HOURS TO SEVERAL DAYS FOR SKIN TO HEAL. IF IT IS NOT RESOLVING, OR GETTING WORSE, CALL YOUR PRIMARY CARE DOCTOR. Addendum: 03/07/22 at 1410 by Katya Fiore LVN Amended: Links added.
--- NOTE | 2022-03-07 15:24 | NUR ---
Report called to Sanchez in Recovery. Blood [id number], patient transported via hospital bed wound vac in place.
[2022-03-07] MEDS ORDERED: HYDROmorphone/PF 0.2 MG/ML SYRINGE IV PRN ×2 (15:40)
[2022-03-07] MEDS ORDERED: ondansetron/PF 4mg/2ml inj IV PRN (15:40)
[2022-03-07] MEDS ORDERED: acetaminophen 1,000mg/100ml IV 100 ML IV PRN (15:40)
[2022-03-07] MEDS ORDERED: labetalol 20mg/4ml (5mg/ml) syringe IV PRN (15:40)
[2022-03-07] MEDS ORDERED: hydrALAZINE 20mg/ml inj. IV PRN (15:40)
[2022-03-07] MEDS ORDERED: morphine 2 MG/ML inj. syringe IV PRN (15:40)
[2022-03-07] MEDS ORDERED: proCHLORperazine 10 MG/2 ml inj IV PRN (15:40)
[2022-03-07] MEDS ORDERED: morphine 4 MG/ML inj SYRINge IV PRN (15:40)
[2022-03-07] MEDS ORDERED: ringers solution, lacted 1,000 ML IV SCH (15:40)
[2022-03-07] MEDS ORDERED: sevoflurane 250ml liquid IH ONE (15:46)
[2022-03-07] MEDS ORDERED: midazolam 1 mg/ML 2ml injection ONE (16:05)
[2022-03-07] MEDS ORDERED: fentaNYL /PF 50mcg/ml 5ml ampule ONE (16:08)
[2022-03-07] MEDS ORDERED: propofol inj 20 ML IV ONE (16:14)
[2022-03-07] MEDS ORDERED: dexamethasone sod phosphate 4mg/ml inj. ONE (16:14)
[2022-03-07] MEDS ORDERED: LIDOcaine 2% (20mg/ml) 5ml vial ONE (16:14)
[2022-03-07] MEDS ORDERED: ondansetron/PF 4mg/2ml inj ONE (16:14)
--- NOTE | 2022-03-07 16:50 | NUR ---
Received from OR via , accompanied by Anesthesiologist and report given by Anesthesiolgist. PATIENT WAKING UP, DENIES PAIN, V/S WNL, SCD ON ,PICC RUE, F/C DRAINING CLEAR YELLOW URINE.WV GROIN AREA BUTTOCKS CDI AT 125 CONTINOUS SUCTIONS W/ NO LEAKS DETECTED.
--- NOTE | 2022-03-07 17:30 | NUR ---
PATIENT A&OX4, DENIES PAIN, V/S WNL, SCD ON ,PICC RUE, F/C DRAINING CLEAR YELLOW URINE.WV GROIN AREA BUTTOCKS CDI AT 125 CONTINOUS SUCTIONS W/ NO LEAKS DETECTED. PATIENT TAKEN TO FLOOR ROOM WITH ALL BELONGINGS AND HOOKED UP TO ALL MONITORS IN ROOM AND REPORT GIVEN TO RN WHO HAS TAKEN OVER PATIENT CARE.
[2022-03-07] MEDS: traMADol 50MG tablet PO PRN (17:51)
--- NOTE | 2022-03-07 19:03 | NUR ---
Problems reprioritized. Patient report given, questions answered & plan of care reviewed with Marylin WOODRUFF.
[2022-03-07] MEDS: insulin Lispro (HumaLOG) vial - multi-dose SQ SCH (20:23)
[2022-03-07] MEDS: insulin glargine (Lantus) pen - multi-dose SQ SCH (20:24)
[2022-03-08 06:00] VITALS: BP 110/73
[2022-03-08 06:07] LABS: BASOPHILS % (AUTO) 0.2 % (0-1); EOSINOPHILS % (AUTO) 0.1 % (0-6); HEMOGLOBIN 10.5 g/dl (14.0-17.9); LYMPHOCYTES # (AUTO) 1.5 X10'3 (1.1-4.8); LYMPHOCYTES % (AUTO) 22.3 % (21-51); MEAN CORPUSCULAR HEMOGLOBIN 33.8 PG (27.0-31.0); MEAN CORPUSCULAR HGB CONC 33.8 g/dL (33.0-36.5); MEAN CORPUSCULAR VOLUME 100.2 FL (78-98); MEAN PLATELET VOLUME 9.3 FL (7.4-10.4); MONOCYTES # (AUTO) 0.5 X10'3 (0-0.9); MONOCYTES % (AUTO) 7.2 % (2-12); NEUTROPHILS # (AUTO) 4.7 X10'3 (1.8-7.7); NEUTROPHILS % (AUTO) 70.2 % (42-75); PLATELET COUNT 193 X10'3 (140-440); RED BLOOD COUNT 3.09 X10'6 (4.70-6.10); RED CELL DISTRIBUTION WIDTH 14.6 % (11.5-14.5); WHITE BLOOD COUNT 6.7 X10'3 (4.5-11.0)
[2022-03-08 06:26] LABS: ALANINE AMINOTRANSFERASE 45 U/L (12-78); ALBUMIN 2.6 G/DL (3.4-5.0); ALBUMIN/GLOBULIN RATIO 0.5 (1.1-1.5); ALKALINE PHOSPHATASE 133 IU/L (46-116); ANION GAP 7 (8-16); ASPARTATE AMINO TRANSFERASE 42 U/L (10-37); BILIRUBIN,TOTAL 0.4 MG/DL (0.1-1.0); BLOOD UREA NITROGEN 25 MG/DL (7-18); BUN/CREATININE RATIO 27.8 (5.4-32.0); CALCIUM 8.7 MG/DL (8.5-10.1); CHLORIDE 104 MMOL/L (99-107); GLUCOSE 212 MG/DL (70-104); MAGNESIUM 2.2 MG/DL (1.5-2.4); PHOSPHORUS 4.1 MG/DL (2.3-4.5); POTASSIUM 4.1 MMOL/L (3.5-5.1); SODIUM 136 MMOL/L (135-145); TOTAL CARBON DIOXIDE 24.7 MMOL/L (24-32); TOTAL PROTEIN 7.7 G/DL (6.4-8.2); eGFR 90 ML/MIN
--- NOTE | 2022-03-08 07:07 | NUR ---
Patient in room [facility] 340. I have received report from Marylin WOODRUFF Traveler and had the opportunity to ask questions and assume patient care.
[2022-03-08] MEDS: JUVEN Smoothie Arginine/Glut./Ca2+Bmb (Juven 19.3pkt) 240ml cup PO SCH (07:30)
[2022-03-08] MEDS: LACTOSE-REDUCED FOOD 237ML LIQUID PO SCH ×2 (08:00→13:00)
[2022-03-08] MEDS: heparin, porcine 5000 units/ml vial SQ SCH ×2 (08:00→16:00)
[2022-03-08] MEDS: pantoprazole 40MG/NS 100ML BAG 100 ML IV SCH (08:04)
[2022-03-08] MEDS: folic acid 1mg tablet PO SCH (08:18)
[2022-03-08] MEDS: thiamine 100mg tablet PO SCH (08:18)
[2022-03-08] MEDS: clindamycin-Cleocin 900mg/D5W 50 ML IV SCH ×2 (08:18→16:00)
[2022-03-08] MEDS: multivitamins, therapeutics tablet PO SCH (08:18)
[2022-03-08] MEDS: cefepime 2g/NS 100ml ADVANTAGE 100 ML IV SCH (08:18)
[2022-03-08] MEDS: fluconazole 100mg tablet PO SCH (08:18)
[2022-03-08] MEDS: DAPTOmycin inj. 700 MG in normal saline 100ml IV soln 100 ML IV SCH (08:18)
[2022-03-08] MEDS: furosemide 20 MG/2 ML vial IV SCH (08:19)
[2022-03-08] MEDS: insulin Lispro (HumaLOG) vial - multi-dose SQ SCH ×2 (09:59→14:27)
[2022-03-08 10:00] VITALS: BP 103/87
--- NOTE | 2022-03-08 14:15 | NUR ---
F/u: Pt and SO seen at bedside for written and verbal DM, colostomy, and wound healing nutrition therapy educations with ONS coupons. Pt and SO very receptive to information provided. Pt states he is very familiar with DM management d/t having a family member with DM. RD encouraged pt to f/u with PCP for a f/u A1c as BG levels have been fairly well controlled considering admitting dx. Pt and SO deny questions at this time. RD contact information provided and pt/SO encouraged to reach out if needed. Pt pending discharge at this time. Will remain available. Addendum: 03/08/22 at [address] Amended: Links added.
[2022-03-08] MEDS: normal saline 500ml IV soln 500 ML IV SCH (14:35)
--- NOTE | 2022-03-08 15:43 | NUR ---
Problems reprioritized. Patient report given, questions answered & plan of care reviewed with Jaky RN at [facility]. Advised to get a specialty bed and wound vac ready.
--- NOTE | 2022-03-08 18:15 | NUR ---
Pt transferred to [facility] via EMS. Pt is A & o x4 and in not apparent distress. Report called to the [facility] - spoke to Jaky WOODRUFF. EMS taken the package and pts belongings.
== END 2022-03-08 17:48 | DRG 853 ==
LOC: ER 09:09 → ED HOLD 13:50 → CICU 2S 16:52 → SUR 3N 03-03 14:20
PROVIDERS: ADMIT Internal Medicine Critical Care Medicine; ATTEND Internal Medicine Critical Care Medicine
PROC: 0JBB0ZZ Excision of Perineum Subcutaneous Tissue and Fascia, Open Approach (ICD-10-PCS; 2022-02-15)
PROC: 0VB50ZZ Excision of Scrotum, Open Approach (ICD-10-PCS; 2022-02-15)
PROC: 0BH17EZ Insertion of Endotracheal Airway into Trachea, Via Natural or Artificial Opening (ICD-10-PCS; 2022-02-15)
PROC: 5A1955Z Respiratory Ventilation, Greater than 96 Consecutive Hours (ICD-10-PCS; principal; 2022-02-15 14:33)
PROC: 0VB50ZZ Excision of Scrotum, Open Approach (ICD-10-PCS; 2022-02-16)
PROC: 0DBN4ZZ Excision of Sigmoid Colon, Percutaneous Endoscopic Approach (ICD-10-PCS; 2022-02-21)
PROC: 0JB90ZZ Excision of Buttock Subcutaneous Tissue and Fascia, Open Approach (ICD-10-PCS; 2022-02-24)
PROC: 0HBAXZZ Excision of Inguinal Skin, External Approach (ICD-10-PCS; 2022-02-28)
PROC: 0HBAXZZ Excision of Inguinal Skin, External Approach (ICD-10-PCS; 2022-03-02)
PROC: 0VB50ZZ Excision of Scrotum, Open Approach (ICD-10-PCS; 2022-03-05)
PROC: 2W16X6Z Compression of Right Inguinal Region using Pressure Dressing (ICD-10-PCS; 2022-03-07)
DX: A40.8 Other streptococcal sepsis (principal); J96.00 Acute respiratory failure, unspecified whether with hypoxia or hypercapnia; M72.6 Necrotizing fasciitis; R65.21 Severe sepsis with septic shock; E11.52 Type 2 diabetes mellitus with diabetic peripheral angiopathy with gangrene; E87.1 Hypo-osmolality and hyponatremia; E87.20 Acidosis, unspecified; K61.1 Rectal abscess; L02.31 Cutaneous abscess of buttock; N17.9 Acute kidney failure, unspecified; R18.8 Other ascites; Z20.822 Contact with and (suspected) exposure to COVID-19; B37.2 Candidiasis of skin and nail; E11.22 Type 2 diabetes mellitus with diabetic chronic kidney disease; E11.649 Type 2 diabetes mellitus with hypoglycemia without coma; F10.20 Alcohol dependence, uncomplicated; K74.60 Unspecified cirrhosis of liver; N18.30 Chronic kidney disease, stage 3 unspecified; N49.3 Fournier gangrene; Z80.0 Family history of malignant neoplasm of digestive organs; Z83.3 Family history of diabetes mellitus
CPT/HCPCS: 36569; 93306; 96365; 96366; 96368; 96372; 96375; 99285; Z7506; Z7508; 36415; 36600; 71045; 72192; 74018; 76942; 80047; 80048; 80053; 80202; 81001; 82803; 82810; 82948; 83036; 83605; 83735; 83880; 84100; 84132; 84134; 84145; 84478; 85007; 85008; 85018; 85025; 85379; 85384; 85610; 85730; 87040; 87070; 87075; 87077; 87081; 87102; 87186; 87635; 93005; 94002; 94003; 94760; 97110; 97161; 97530; A4215; A4333; A4346; A4421; A4615; A4618; A6212; A6213; A6253; A6258; A6446; A6449; A6550; A7000; A9900; C1751; C9113; G0378; J0131; J0295; J0692; J0878; J1100; J1120; J1170; J1250; J1450; J1610; J1644; J1720; J1815; J1940; J2060; J2175; J2250; J2270; J2370; J2405; J2543; J2704; J2765; J3010; J3370; J3411; J3480; J3490; J7030; J7040; J7042; J7050; J7060; J7070; J7120; P9045; P9047; S0020